=== PATIENT | female | born 1945 | race African-American/Black ===

== ENCOUNTER 2016-08-07 13:54 | Inpatient (IN) | payer MEDICARE ==
[2016-08-07] MEDS ORDERED: NORMAL SALINE 1000 ML 1,000 ML IV ONE (14:34)
--- NOTE | 2016-08-07 14:41 | ER Document Report ---
ED Medical Screen (RME) - General Stated Complaint: ABDOMINAL PAIN Mode of Arrival: Ambulatory Information source: Patient Notes: 71-year-old female presents to the emergency department referred by surgicalist office for lower abdominal pain, weight loss, findings on CT scan on 07/30/15. I have greeted and performed a rapid initial assessment of this patient. A comprehensive ED assessment and evaluation of the patient, analysis of test results and completion of the medical decision making process will be conducted by additional ED providers. TRAVEL OUTSIDE OF THE [place] IN LAST 30 DAYS: No - Related Data Allergies/Adverse Reactions: Penicillins Allergy (Verified 08/07/16 14:32) Past Medical History - Social History Chew tobacco use (# tins/day): No Frequency of alcohol use: None Drug Abuse: None Endocrine Medical History: Reports: Hx Diabetes Mellitus Type 2 Renal/ Medical History: Denies: Hx Peritoneal Dialysis Physical Exam - Vital signs Vitals: Temp Pulse Resp BP 97.4 F 100 22 H 134/86 H 08/07/16 14:15 08/07/16 14:15 08/07/16 14:15 08/07/16 14:15 - General General appearance: Alert In distress: None - Respiratory Respiratory status: No respiratory distress - Cardiovascular Rhythm: Regular Pulses: Normal: Radial Normal capillary refill: Yes Course - Vital Signs Vital signs: Temp Pulse Resp BP Pulse Ox 97.4 F 100 22 H 134/86 H 08/07/16 14:15 08/07/16 14:15 08/07/16 14:15 08/07/16 14:15
[2016-08-07 15:12] LABS: HEMATOCRIT 37.1 % (36.0-47.0); HEMOGLOBIN 11.2 g/dL (12.0-15.5); HGB HCT DIFFERENCE -3.5; MEAN CORPUSCULAR HEMOGLOBIN 22.4 pg (27.0-33.4); MEAN CORPUSCULAR HGB CONC 30.2 g/dL (32.0-36.0); MEAN CORPUSCULAR VOLUME 74 fl (80-97); RED BLOOD COUNT 5.01 10^6/uL (3.72-5.28)
[2016-08-07 15:29] LABS: ALANINE AMINOTRANSFERASE 15 U/L (9-52); ALBUMIN 3.3 g/dL (3.5-5.0); ALKALINE PHOSPHATASE 68 U/L (38-126); ANION GAP 17 (5-19); ASPARTATE AMINO TRANSFERASE 11 U/L (14-36); BILIRUBIN,TOTAL 0.7 mg/dL (0.2-1.3); BLOOD UREA NITROGEN 41 mg/dL (7-20); CALCIUM 9.5 mg/dL (8.4-10.2); CARBON DIOXIDE 34 mmol/L (22-30); CHLORIDE 91 mmol/L (98-107); CREATININE RESULT 1.18 mg/dL (0.52-1.25); GLUCOSE 156 mg/dL (75-110); LIPASE 20.6 U/L (23-300); POTASSIUM 3.2 mmol/L (3.6-5.0); SODIUM 141.9 mmol/L (137-145); TOTAL PROTEIN 7.9 g/dL (6.3-8.2)
[2016-08-07 15:52] LABS: BASOPHILS % (MANUAL) 0 % (0-2); EOSINOPHILS % (MANUAL) 1 % (0-6); LYMPHOCYTES % (MANUAL) 5 % (13-45); TOTAL CELLS COUNTED 100
[2016-08-07 15:55] LABS: ANISOCYTOSIS 2+; HYPOCHROMASIA 1+; MICROCYTOSIS 1+; ROULEAUX 1+; TOXIC GRANULATION SLIGHT
[2016-08-07 16:02] LABS: WHITE BLOOD COUNT 34.9 10^3/uL (4.0-10.5)
--- NOTE | 2016-08-07 16:09 | ER Document Report ---
ED General - General Chief Complaint: Abdominal Pain Stated Complaint: ABDOMINAL PAIN Mode of Arrival: Ambulatory Information source: Patient, Relative, Dr. Office Notes: 71 yr old female who was sent here by Dr Bermudez for evaluation preents with family with concerns of weight loss, decreased appetite. Patient admits to chronic abdominal pain for the past [address] was performed by her primary care physician noted perisigmoid colonic tumor TRAVEL OUTSIDE OF THE [place] IN LAST 30 DAYS: No - HPI Onset: Other Onset/Duration: Persistent Quality of pain: Sharp Severity: Moderate Pain Level: 3 Associated symptoms: Other Exacerbated by: Denies Relieved by: Denies Similar symptoms previously: Yes Recently seen / treated by doctor: Yes - Related Data Allergies/Adverse Reactions: Penicillins Allergy (Verified 08/07/16 14:32) Home Medications: Current Home Medications No Home Medications 08/07/16 [History] Past Medical History - General Information source: Patient - Social History Smoking Status: Never Smoker Cigarette use (# per day): No Chew tobacco use (# tins/day): No Smoking Education Provided: No Frequency of alcohol use: None Drug Abuse: None Family History: Reviewed & Not Pertinent Patient has suicidal ideation: No Patient has homicidal ideation: No Endocrine Medical History: Reports: Hx Diabetes Mellitus Type 2 Renal/ Medical History: Denies: Hx Peritoneal Dialysis Review of Systems - Review of Systems Notes: REVIEW OF SYSTEMS: CONSTITUTIONAL : Weight loss EENT: Denies eye, ear, throat, or mouth pain or symptoms. Denies nasal or sinus congestion or discharge. Denies throat, tongue, or mouth swelling or difficulty swallowing. CARDIOVASCULAR: Denies chest pain. Denies palpitations or racing or irregular heart beat. Denies ankle edema. RESPIRATORY: Denies cough, cold, or chest congestion. Denies shortness of breath, difficulty breathing, or wheezing. GASTROINTESTINAL: Abdominal pain GENITOURINARY: Denies difficulty urinating, painful urination, burning, frequency, blood in urine, or discharge. FEMALE GENITOURINARY: Denies vaginal bleeding, heavy or abnormal periods, irregular periods. Denies vaginal discharge or odor. MUSCULOSKELETAL: Denies back or neck pain or stiffness. Denies joint pain or swelling. SKIN: Denies rash, lesions or sores. HEMATOLOGIC : Denies easy bruising or bleeding. LYMPHATIC: Denies swollen, enlarged glands. NEUROLOGICAL: Denies confusion or altered mental status. Denies passing out or loss of consciousness. Denies dizziness or lightheadedness. Denies headache. Denies weakness or paralysis or loss of use of either side. Denies problems with gait or speech. Denies sensory loss, numbness, or tingling. Denies seizures. PSYCHIATRIC: Denies anxiety or stress. Denies depression, suicidal ideation, or homicidal ideation. ALL OTHER SYSTEMS REVIEWED AND NEGATIVE. Dictation was performed using [employer] voice recognition software PHYSICAL EXAMINATION: GENERAL: Cachectic very ill-appearing female HEAD: Atraumatic, normocephalic. EYES: Pupils equal round and reactive to light, extraocular movements intact, conjunctiva are normal. ENT: Nares patent, oropharynx clear without exudates. Moist mucous membranes. NECK: Normal range of motion, supple without lymphadenopathy LUNGS: Breath sounds clear to auscultation bilaterally and equal. No wheezes rales or rhonchi. HEART: Regular rate and rhythm without murmurs ABDOMEN: Firm abdominal mass tender on palpation unable to leave patient flatly to pain Female : deferred Musculoskeletal: Normal range of motion, no pitting or edema. No cyanosis. NEUROLOGICAL: Cranial nerves grossly intact. Normal speech, normal gait. Normal sensory, motor exams PSYCH: Normal mood, normal affect. SKIN: Warm, Dry, normal turgor, no rashes or lesions noted. Physical Exam - Vital signs Vitals: Temp Pulse Resp BP 97.4 F 100 22 H 134/86 H 08/07/16 14:15 08/07/16 14:15 08/07/16 14:15 08/07/16 14:15 Course - Re-evaluation Re-evalutation: 08/07/16 16:09 pt noted to be ill appearing, cachectic, wbc count 35 UA pending pt started on antibitiocs and fluids 08/07/16 18:51 Urinalysis and chest x-ray results are still pending, patient has been admitted due to her from Lipitor appearance and very low prognosis - Vital Signs Vital signs: Temp Pulse Resp BP Pulse Ox 97.4 F 100 22 H 134/86 H 08/07/16 14:15 08/07/16 14:15 08/07/16 14:15 08/07/16 14:15 - Laboratory Result Diagrams: 08/07/16 14:50 08/07/16 14:50 Laboratory results interpreted by me: 08/07/16 08/07/16 08/07/16 14:50 14:50 14:50 WBC 34.9 H* Hgb 11.2 L MCV 74 L MCH 22.4 L MCHC 30.2 L RDW 18.0 H Seg Neuts % (Manual) 87 H Lymphocytes % (Manual) 5 L Abs Neuts (Manual) 30.4 H Abs Monocytes (Manual) 2.4 H Potassium 3.2 L Chloride 91 L Carbon Dioxide 34 H BUN 41 H Est GFR ( Amer) 54 L Est GFR (Non-Af Amer) 45 L Glucose 156 H AST 11 L Albumin 3.3 L Lipase 20.6 L TSH 9.96 H Free T3 pg/mL 08/07/16 14:50 WBC Hgb MCV MCH MCHC RDW Seg Neuts % (Manual) Lymphocytes % (Manual) Abs Neuts (Manual) Abs Monocytes (Manual) Potassium Chloride Carbon Dioxide BUN Est GFR ( Amer) Est GFR (Non-Af Amer) Glucose AST Albumin Lipase TSH Free T3 pg/mL 1.67 L - Diagnostic Test Radiology reviewed: Image reviewed, Reports reviewed Critical Care Note - Critical Care Note Total time excluding time spent on procedures (mins): 31 Comments: 31 minutes of critical care time spent in direct contact evaluating and reevaluating the patient, treating symptoms, reviewing labs and studies and speaking with family and consultants excluding any procedures Discharge - Discharge Clinical Impression: Abdominal mass, LLQ (left lower quadrant), SIRS (systemic inflammatory response syndrome), Weight loss of more than 10% body weight, Lethargy Condition: Serious Disposition: ADMITTED INPATIENT Admitting Provider: Hospitalist Unit Admitted: Telemetry Referrals: AUGUSTUS QUIÑONES MD [Primary Care Provider] - Follow up as needed
[2016-08-07] MEDS ORDERED: METRONIDAZOLE 500 MG/NS RTU 100 ML IV ONE (16:19)
[2016-08-07] MEDS ORDERED: NORMAL SALINE 1000 ML 2,000 ML IV ONE (16:20)
[2016-08-07] MEDS ORDERED: IPRATROPIUM/ALBUTEROL 0.5-2.5 MG/3 ML AMPUL NEB PRN (16:22)
[2016-08-07] MEDS ORDERED: ONDANSETRON HCL INJ/PF 4 MG/2 ML SDV IV PRN (16:29)
[2016-08-07] MEDS ORDERED: ONDANSETRON 4 MG TAB.RAPDIS PO PRN (16:29)
[2016-08-07] MEDS ORDERED: ACETAMINOPHEN 325 MG TABLET PO PRN (16:29)
[2016-08-07 16:56] LABS: MAGNESIUM 2.3 mg/dL (1.6-2.3); PHOSPHORUS 3.4 mg/dL (2.5-4.5)
[2016-08-07] MEDS ORDERED: DEXTROSE IV SCH (17:00)
[2016-08-07] MEDS ORDERED: LEVOFLOXACIN 500 MG/D5W RTU 100 ML IV SCH (17:00)
[2016-08-07] MEDS ORDERED: LEVOFLOXACIN 750 MG/D5W RTU 750 MG/150 ML RTUPB IV SCH (17:00)
[2016-08-07] MEDS ORDERED: LEVOFLOXACIN IV SCH (17:00)
[2016-08-07] MEDS ORDERED: ACETAMINOPHEN SOLN 325 MG/10.15 ML UDCUP NG PRN (17:42)
[2016-08-07] MEDS ORDERED: PHARMACY COMMUNICATION ORDER MC NR ×2 (17:45)
[2016-08-07] MEDS ORDERED: GLUCAGON,HUMAN RECOMB 1 MG INJ IM PRN (17:53)
[2016-08-07] MEDS ORDERED: DEXTROSE 50%-WATER 25 GM/50 ML DISP.SYRIN IV PRN ×2 (17:53)
[2016-08-07] MEDS ORDERED: DEXTROSE 40% GEL 15 GM TUBE PO PRN ×2 (17:53)
--- NOTE | 2016-08-07 18:06 | PDOC H&P ---
History of Present Illness Admission Date/PCP: 08/07/2016 Enrico Spencer M.D. History of Present Illness: SUMMER LUZ is a 71 year old female with a past medical history significant only for diabetes mellitus who presents to the emergency department from the surgeon's office. Patient has been increasingly lethargic today and worsening over the past 2 weeks. Patient has not been eating or drinking and is noted to have a significant abdominal mass on CT obtained from [facility]. Patient's daughter reports that she's gone from a size 16 to a size 8 or less in under 6 months losing approximately 100 pounds. She reports that her mother as well as cold but denies any fevers or chills. Patient admits to abdominal pain. Patient denies any hematochezia or melena. Patient denies any current nausea or vomiting. History is primarily obtained from patient's daughter as patient is of quite lethargic at bedside. Her daughter does note that she's had some increasing problems with her memory over the last 6 months. Patient is referred to hospital service for SIRS, abdominal pain. Past Medical History Past Medical History: Diabetes mellitus Endocrine Medical History: Reports: Diabetes Mellitus Type 2 Past Surgical History Past Surgical History: Hysterectomy, bilateral salpingo-oophorectomy, appendectomy Past Surgical History: Reports: Appendectomy, Hysterectomy Social History Smoking Status: Never Smoker Frequency of Alcohol Use: None Hx Recreational Drug Use: No Hx Prescription Drug Abuse: No - Advance Directive Resuscitation Status: Full Code Surrogate healthcare decision maker:: Ramonita Alexandre Family History Family History: CAD, Malignancy Parental Family History Reviewed: Yes Children Family History Reviewed: Yes Sibling(s) Family History Reviewed.: Yes Medication/Allergy Home Medications: No Home Medications 08/07/16 Allergies/Adverse Reactions: Penicillins Allergy (Verified 08/07/16 14:32) Review of Systems ROS unobtainable: Due to mental status Physical Exam Vital Signs: Temp Pulse Resp BP Pulse Ox 97.4 F 100 22 H 134/86 H 08/07/16 14:15 08/07/16 14:15 08/07/16 14:15 08/07/16 14:15 Intake & Output 08/06/16 08/07/16 08/08/16 06:59 06:59 06:59 Weight 55.7 kg General appearance: PRESENT: thin, other - Cachectic, lethargic Head exam: PRESENT: atraumatic, normocephalic, other - wig Eye exam: PRESENT: conjunctiva pale, EOMI, PERRLA, scleral icterus - Slight scleral. ABSENT: conjunctival injection Ear exam: PRESENT: normal external ear exam Mouth exam: PRESENT: dry mucosa, tongue midline Neck exam: PRESENT: lymphadenopathy - Shotty anterior cervical. ABSENT: carotid bruit, JVD, meningismus, tenderness, thyromegaly, tracheal deviation Respiratory exam: PRESENT: clear to auscultation mitesh, tachypnea, unlabored. ABSENT: rales, rhonchi, wheezes Cardiovascular exam: PRESENT: RRR, +S1, +S2. ABSENT: clicks, diastolic murmur, gallop, rubs, systolic murmur Pulses: PRESENT: normal dorsalis pedis pul Vascular exam: PRESENT: normal capillary refill GI/Abdominal exam: PRESENT: guarding, mass - Palpable left lower quadrant, soft , tenderness - Right and left lower quadrant, other - Unable to fully appreciate mass in abdomen secondary to pain. ABSENT: distended, firm, normal bowel sounds - Absent, organolmegaly, rebound Rectal exam: PRESENT: deferred Extremities exam: PRESENT: full ROM, pedal edema - Trace to midshin. ABSENT: calf tenderness, clubbing Neurological exam: PRESENT: CN II-XII grossly intact, other - Lethargic. ABSENT : motor sensory deficit Psychiatric exam: PRESENT: depressed, flat affect. ABSENT: homicidal ideation, suicidal ideation Skin exam: PRESENT: dry, intact, pallor. ABSENT: cyanosis, rash, warm - Cool bilateral lower extremities Results Laboratory Results: 08/07/16 14:50 08/07/16 14:50 08/07/16 08/07/16 08/07/16 14:50 14:50 14:50 WBC 34.9 H* RBC 5.01 Hgb 11.2 L Hct 37.1 MCV 74 L MCH 22.4 L MCHC 30.2 L RDW 18.0 H Plt Count 384 Seg Neutrophils % Not Reportable Lymphocytes % Not Reportable Monocytes % Not Reportable Eosinophils % Not Reportable Basophils % Not Reportable Absolute Neutrophils Not Reportable Absolute Lymphocytes Not Reportable Absolute Monocytes Not Reportable Absolute Eosinophils Not Reportable Absolute Basophils Not Reportable Sodium 141.9 Potassium 3.2 L Chloride 91 L Carbon Dioxide 34 H Anion Gap 17 BUN 41 H Creatinine 1.18 Est GFR ( Amer) 54 L Est GFR (Non-Af Amer) 45 L Glucose 156 H Calcium 9.5 Phosphorus 3.4 Magnesium 2.3 Total Bilirubin 0.7 AST 11 L ALT 15 Alkaline Phosphatase 68 Total Protein 7.9 Albumin 3.3 L Lipase 20.6 L TSH 08/07/16 14:50 WBC RBC Hgb Hct MCV MCH MCHC RDW Plt Count Seg Neutrophils % Lymphocytes % Monocytes % Eosinophils % Basophils % Absolute Neutrophils Absolute Lymphocytes Absolute Monocytes Absolute Eosinophils Absolute Basophils Sodium Potassium Chloride Carbon Dioxide Anion Gap BUN Creatinine Est GFR ( Amer) Est GFR (Non-Af Amer) Glucose Calcium Phosphorus Magnesium Total Bilirubin AST ALT Alkaline Phosphatase Total Protein Albumin Lipase TSH 9.96 H Assessment & Plan - Diagnosis (1) Abdominal mass, LLQ (left lower quadrant) Is this a current diagnosis for this admission?: YesPlan: At this time, patient has no bowel sounds. Will place NG and obtain CT of the abdomen and pelvis with IV and by mouth contrast. Concern for possible perforated mass. Initiate patient on Levaquin and Flagyl for coverage of intra- abdominal pathogens. Will consult surgicalist for any acute process. (2) SIRS (systemic inflammatory response syndrome) Is this a current diagnosis for this admission?: YesPlan: Obtain blood cultures, UA, urine culture and will begin patient on Levaquin and Flagyl for intra-abdominal etiology. Suspect the patient likely also have a urinary tract infection of the urine is still pending. (3) Weight loss of more than 10% body weight Is this a current diagnosis for this admission?: YesPlan: Will obtain TSH, and consult dietary. Suspect that this is likely related to patient's underlying previously undiagnosed malignancy. Patient currently appears cachectic and is quite weak. Will begin patient on ensure and Magic cup as well as Megace. (4) Diabetes mellitus Qualifiers: Diabetes mellitus type: type 2 Diabetes mellitus complication status: with unspecified complications Diabetes mellitus lobsterman insulin use: without senior living use Qualified Code(s): E11.8 - Type 2 diabetes mellitus with unspecified complications Is this a current diagnosis for this admission?: YesPlan: Will obtain hemoglobin A1c. Accu-Cheks every 6 and sliding scale insulin if needed. (5) Anemia Qualifiers: Anemia type: unspecified type Qualified Code(s): D64.9 - Anemia, unspecified Is this a current diagnosis for this admission?: YesPlan: Will obtain iron studies. (6) Lethargy Is this a current diagnosis for this admission?: YesPlan: Will obtain CT of the head for patient's lethargy and memory issues, suspect underlying metastatic malignancy. - Time Time Spent: 50 to 70 Minutes Medications reviewed and adjusted accordingly: Yes - Inpatient Certification Based on my medical assessment, after consideration of the patient's comorbidities, presenting symptoms, or acuity I expect that the services needed warrant INPATIENT care.: Yes I certify that my determination is in accordance with my understanding of Medicare's requirements for reasonable and necessary INPATIENT services [42 CFR 412.3e].: Yes Medical Necessity: Failure to Improve With Outpatient Therapy, Significant Comorbidiites Make Outpatient Treatment Too Risky, Need For IV Fluids, Need For Continuous Telemetry Monitoring, Need for Pain Control, Need for Surgery, Risk of Complication if Not Cared For in Hospital, Risk of Diagnosis Which Will Require Inpatient Eval/Care/Monitoring Post Hospital Care: D/C Cloud Software Engineer Documentation
[2016-08-07 18:14] LABS: PARTIAL THROMBOPLASTIN TIME 24.7 SEC (23.5-35.8); PROTHROMBIN TIME 13.8 SEC (11.4-15.4)
[2016-08-07 18:18] LABS: FREE T3 1.67 pg/mL (2.77-5.27)
[2016-08-07] MEDS ORDERED: ONDANSETRON 4 MG TAB.RAPDIS NG PRN (19:53)
[2016-08-07] MEDS ORDERED: DEXTROSE 40% GEL 15 GM TUBE NG PRN (19:53)
[2016-08-07 20:30] LABS: VENOUS BLOOD BASE EXCESS 5.5 mmol/L; VENOUS BLOOD HCO3 30.1 mmol/L (20-32); VENOUS BLOOD PCO2 45.2 mmHg (35-63); VENOUS BLOOD PH 7.44 (7.30-7.42)
[2016-08-07] MEDS: NORMAL SALINE 1000 ML 1,000 ML IV PRN (21:00)
[2016-08-07] MEDS: DOCUSATE SODIUM 100 MG CAPSULE PO SCH (21:00)
[2016-08-07] MEDS: HEPARIN SOD (PORCINE) 5,000 UNIT/ML 1 ML SYRINGE SUBCUT SCH (22:00)
[2016-08-07] MEDS ORDERED: FAMOTIDINE 20 MG TABLET PO SCH (22:00)
[2016-08-07] MEDS ORDERED: FAMOTIDINE 20 MG TABLET NG SCH (22:00)
[2016-08-08] MEDS ORDERED: MINERAL OIL 30 ML UDCUP PO ONE (00:03)
[2016-08-08] MEDS: METRONIDAZOLE 500 MG/NS RTU 100 ML IV SCH ×3 (03:11→11:12)
[2016-08-08] MEDS ORDERED: MINERAL OIL 30 ML UDCUP ONE (04:02)
[2016-08-08] MEDS ORDERED: ACETAMINOPHEN SOLN 325 MG/10.15 ML UDCUP PO PRN (04:47)
[2016-08-08] MEDS ORDERED: ONDANSETRON 4 MG TAB.RAPDIS NG PRN (04:48)
[2016-08-08] MEDS ORDERED: DEXTROSE 40% GEL 15 GM TUBE NG PRN (04:49)
[2016-08-08] MEDS ORDERED: ONDANSETRON 4 MG TAB.RAPDIS PO PRN (04:50)
[2016-08-08] MEDS ORDERED: DEXTROSE 40% GEL 15 GM TUBE PO PRN (04:52)
[2016-08-08] MEDS: MORPHINE SULFATE 10 MG/ML INJ IV PRN (04:53)
[2016-08-08 04:56] LABS: APPEARANCE,URINE CLEAR; BILIRUBIN,URINE NEGATIVE (NEGATIVE); GLUCOSE, URINE NEGATIVE (NEGATIVE); KETONES,URINE TRACE mg/dL (NEGATIVE); LEUKOCYTE ESTERASE,URINE TRACE (NEGATIVE); NITRITE,URINE NEGATIVE (NEGATIVE); PROTEIN,URINE NEGATIVE (NEGATIVE); URINE SPECIFIC GRAVITY 1.042; UROBILINOGEN,URINE NEGATIVE mg/dL (<2.0)
[2016-08-08] MEDS ORDERED: LEVOTHYROXINE SODIUM 0.025 MG TABLET NG SCH (06:00)
[2016-08-08] MEDS ORDERED: LEVOTHYROXINE SODIUM 0.025 MG TABLET PO SCH (06:00)
[2016-08-08] MEDS: HEPARIN SOD (PORCINE) 5,000 UNIT/ML 1 ML SYRINGE SUBCUT SCH ×3 (06:24→21:44)
[2016-08-08] MEDS ORDERED: POTASSIUM CHLORIDE 10 MEQ TABLET.SA PO ONE ×2 (08:30→12:00)
[2016-08-08 09:59] LABS: HEMATOCRIT 33.4 % (36.0-47.0); HEMOGLOBIN 10.4 g/dL (12.0-15.5); HGB HCT DIFFERENCE -2.2; MEAN CORPUSCULAR HGB CONC 31.3 g/dL (32.0-36.0); MEAN CORPUSCULAR VOLUME 74 fl (80-97); RED BLOOD COUNT 4.55 10^6/uL (3.72-5.28); RED CELL DISTRIBUTION WIDTH 18.1 % (11.5-14.0)
[2016-08-08] MEDS ORDERED: MEGESTROL ACETATE SUSP 400 MG/10 ML UDCUP NG SCH (10:00)
[2016-08-08 10:09] LABS: ANION GAP 18 (5-19); BLOOD UREA NITROGEN 29 mg/dL (7-20); CALCIUM 8.6 mg/dL (8.4-10.2); CARBON DIOXIDE 25 mmol/L (22-30); CHLORIDE 102 mmol/L (98-107); CREATININE RESULT 0.99 mg/dL (0.52-1.25); GLUCOSE 125 mg/dL (75-110); SODIUM 144.8 mmol/L (137-145)
[2016-08-08 10:39] LABS: POTASSIUM 2.6 mmol/L (3.6-5.0)
[2016-08-08 10:42] LABS: BAND NEUTROPHILS % (MANUAL) 2 % (3-5); BASOPHILS % (MANUAL) 0 % (0-2); EOSINOPHILS % (MANUAL) 1 % (0-6); LYMPHOCYTES % (MANUAL) 3 % (13-45); TOTAL CELLS COUNTED 100
[2016-08-08 10:44] LABS: ANISOCYTOSIS 1+; HYPOCHROMASIA 1+; TOXIC GRANULATION 1+
[2016-08-08 10:45] LABS: WHITE BLOOD COUNT 34.3 10^3/uL (4.0-10.5)
[2016-08-08] MEDS ORDERED: MAGNESIUM CITRATE 296 ML BOTTLE PO ONE (11:00)
[2016-08-08 11:12] LABS: FOLATE 2.49 ng/mL (>2.76); MICROCYTOSIS 1+
[2016-08-08] MEDS: NORMAL SALINE 1000 ML 1,000 ML IV PRN ×2 (11:14→20:06)
[2016-08-08] MEDS: FAMOTIDINE 20 MG TABLET PO SCH ×2 (11:16→21:44)
[2016-08-08] MEDS: MEGESTROL ACETATE SUSP 400 MG/10 ML UDCUP PO SCH (11:16)
[2016-08-08] MEDS ORDERED: FOLIC ACID INJ 5 MG/1 ML 10 ML VIAL IV SCH (12:15)
[2016-08-08] MEDS: POTASSI CL 20 MEQ/50 ML RIDER 50 ML IV SCH ×3 (13:01→17:19)
[2016-08-08] MEDS ORDERED: DIPHENHYDRAMINE HCL 50 MG/ML VIAL IV PRN (14:00)
[2016-08-08] MEDS ORDERED: PEG 3350/NA SULF,BICARB,CL/KCL 4000 ML PO ONE (14:00)
[2016-08-08] MEDS ORDERED: ACETAMINOPHEN 325 MG TABLET PO PRN (14:00)
--- NOTE | 2016-08-08 14:26 | PDOC PROGRESS REPORT ---
Subjective Progress Note for:: 08/08/16 Subjective:: Patient is having some confusion. Primarily she would like to sit up. Patient' s abdominal pain appears to be improved with morphine. Unable to obtain review of systems secondary to altered mental status. Physical Exam Vital Signs: Temp Pulse Resp BP Pulse Ox 97.5 F 108 H 18 119/81 100 08/08/16 03:07 08/08/16 07:00 08/08/16 03:07 08/08/16 03:07 08/08/16 03:07 Intake & Output 08/07/16 08/08/16 08/09/16 06:59 06:59 06:59 Intake Total 1089 Balance 1089 Weight 47.8 kg Exam: General: Cachectic, chronically ill-appearing, Awake alert and oriented x1, no acute respiratory distress HEENT: AT/NC, PERRL, EOMI, oropharynx is moist, pink, no scleral icterus, no conjunctival injection Neck: No JVD, trachea midline Chest: Clear to auscultation bilaterally, no wheezes rhonchi or rales CV: Regular rate and rhythm, normal S1 and S2, no rub, or gallop Abdomen:tender to palpation llq, mildly distended, active bowel sounds; no rebound, rigidity, or guarding Extremities: No cyanosis, clubbing or edema Neuro: Cranial nerves II through XII are grossly intact without focal deficits; awake alert and oriented x1 Psych: Flat affect Skin: No rashes or lesions visible Results Laboratory Results: 08/07/16 08/07/16 08/07/16 20:12 20:12 20:12 VBG pH 7.44 H VBG pCO2 45.2 VBG HCO3 30.1 VBG Base Excess 5.5 Lactic Acid 2.1 Urine Color Urine Appearance Urine pH Ur Specific [place] Urine Protein Urine Glucose (UA) Urine Ketones Urine Blood Urine Nitrite Ur Leukocyte Esterase Urine WBC (Auto) Urine RBC (Auto) Blood Type O POSITIVE Antibody Screen NEGATIVE 08/08/16 08/08/16 00:54 03:39 VBG pH VBG pCO2 VBG HCO3 VBG Base Excess Lactic Acid 4.2 H Urine Color YELLOW Urine Appearance CLEAR Urine pH 6.0 Ur Specific [place] 1.042 Urine Protein NEGATIVE Urine Glucose (UA) NEGATIVE Urine Ketones TRACE H Urine Blood NEGATIVE Urine Nitrite NEGATIVE Ur Leukocyte Esterase TRACE H Urine WBC (Auto) 1 Urine RBC (Auto) 0 Blood Type Antibody Screen Impressions: Abdomen/Pelvis CT 08/07/16 00:00 IMPRESSION: There is thickening of the hoyt of the sigmoid colon as noted above with an apparent focal area of narrowing suspicious for colonic neoplasm or stricture. There is a moderate amount of gas and fecal material in the colon just proximal to this level. Clinical correlation is recommended. Colonoscopy may be of value for further evaluation. Other findings as noted above Head CT 08/07/16 00:00 IMPRESSION: CHRONIC CHANGES OF ATROPHY AND MICROVASCULAR ISCHEMIA. NO ACUTE PROCESS. Chest X-Ray 08/07/16 16:28 IMPRESSION: No acute cardiopulmonary process. No significant change from prior study. Assessment & Plan - Diagnosis (1) Abdominal mass, LLQ (left lower quadrant) Is this a current diagnosis for this admission?: YesPlan: Appears on CT the patient has a sigmoid mass and subsequent fecal impaction proximal to the mass. Appreciate surgery input on this case. Attempt cathartics both oral and per rectum. Hopefully plan for a sigmoidoscopy within the next several days. Have sent a CEA and CA-[id number] and consulted oncology. (2) SIRS (systemic inflammatory response syndrome) Is this a current diagnosis for this admission?: YesPlan: Pending blood cultures, urine culture. Patient on Levaquin and Flagyl for intra- abdominal etiology; given that patient has had very minimal change in her white count from this, will change to ertapenem as there is some concern for possible ongoing leakage of gastric contents into her abdomen. CT was done without oral contrast despite my orders for NG and oral contrast. (3) Weight loss of more than 10% body weight Is this a current diagnosis for this admission?: YesPlan: Consult dietary. Suspect that this is likely related to patient's underlying previously undiagnosed malignancy. Patient currently appears cachectic and is quite weak. Patient on ensure and Magic cup as well as Megace. Will monitor patient for refeeding syndrome. Will place NG and tube feeds if needed. (4) Diabetes mellitus Qualifiers: Diabetes mellitus type: type 2 Diabetes mellitus complication status: with unspecified complications Diabetes mellitus residential insulin use: without residential use Qualified Code(s): E11.8 - Type 2 diabetes mellitus with unspecified complications; Z79.4 - shelter (current) use of insulin Is this a current diagnosis for this admission?: YesPlan: Patient's hemoglobin A1c is 5.8. Accu-Cheks every 6. 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 Begin patient on IV folic acid and patient has received IV iron from hematology. Appreciate their input into this patient's case. (6) Hypothyroidism Qualifiers: Hypothyroidism type: unspecified Qualified Code(s): E03.9 - Hypothyroidism, unspecified Is this a current diagnosis for this admission?: YesPlan: Patient currently hypothyroid and will initiate on 50 g of Synthroid daily. (7) Fecal impaction Is this a current diagnosis for this admission?: YesPlan: Patient will have cathartics from both upper and lower. Secondary to mass. Appreciate surgery's input. (8) Altered mental status Qualifiers: Altered mental status type: disorientation Qualified Code(s): R41.0 - Disorientation, unspecified Is this a current diagnosis for this admission?: YesPlan: Feel that patient's current altered mental status is secondary to underlying sepsis, malignancy. - Time Time Spent with patient: 35 or more minutes Medications reviewed and adjusted accordingly: Yes
[2016-08-08] MEDS ORDERED: FERRIC CARBOXYMALTOSE 750 MG in NORMAL SALINE 250 ML IV PRN (14:30)
[2016-08-08] MEDS: FOLIC ACID 1 MG in NORMAL SALINE 50 ML IV SCH (16:35)
--- NOTE | 2016-08-08 17:07 | PDOC CONSULTATION ---
History of Present Illness Admission Date/PCP: 08/07/16 16:22 AUGUSTUS QUIÑONES History of Present Illness: SUMMER LUZ is a 71 year old -[place] female with a past medical history significant only for diabetes mellitus. She was sent from the surgeon' s office to the emergency department based on clinical assessment and worrisome CT findings. History is obtained from the patient's 3 daughters, since the patient is unable, due to mental status changes. Summer has experienced a gradual weight loss over the last 2 years and in extreme weight loss over the last 2 months. Her total weight loss is estimated to be greater than 100 pounds , approximate 40 of which was in the last month and a half. She is gone from a size 18 down to a size 6. She has not been eating and has been taking in very little fluids. She reports feeling full. Her daughters have been encouraging her to seek medical care for quite some time, but she has been resistant. She did not have diarrhea but did have one episode of diarrhea during this last 2 months. During the last 2 months she's been reporting lower abdominal pain, poor sleep, memory issues, depression and questionable dementia. She's also been cold all the time and had white fingertips. She was seen 3 weeks ago for dark urine and was diagnosed with UTI. She was described Bactrim, but only took 1 dose since it gave her abdominal discomfort. Social history: She is a former smoker, but quit over 35 years ago. She lives alone in [place] but has 3 daughters present in the surrounding area. Family history: The daughters deny any family history of colon cancer, ulcerative colitis or Crohn's disease. Past surgical history: Previous abdominal surgery includes total abdominal hysterectomy with concurrent appendectomy. No previous colonoscopy. Review of systems: From the daughters, is negative for nausea, vomiting, fever, chills, seizures, tremors, lightheadedness, dizziness, chest pain, shortness of breath, constipation, blood in her stools. Past Medical History Endocrine Medical History: Reports: Diabetes Mellitus Type 2 Past Surgical History Past Surgical History: Reports: Appendectomy, Hysterectomy Social History Information Source: Relative Lives with: Alone Smoking Status: Former Smoker Cigarettes Packs Per Day: 0.5 Last Time Smoked: 35 years ago Frequency of Alcohol Use: None Hx Recreational Drug Use: No Drugs: None Hx Prescription Drug Abuse: No - Advance Directive Resuscitation Status: Full Code Family History Family History: DM, Hypertension, Malignancy - Breast cancer and her sister's. No family history of colon cancer. Parental Family History Reviewed: Yes Children Family History Reviewed: Yes Sibling(s) Family History Reviewed.: Yes Medication/Allergy Home Medications: No Home Medications 08/07/16 Allergies/Adverse Reactions: Penicillins Allergy (Verified 08/07/16 14:32) Review of Systems ROS unobtainable: Due to mental status Physical Exam Vital Signs: Temp Pulse Resp BP Pulse Ox 97.2 F 90 16 106/71 97 08/08/16 11:36 08/08/16 14:15 08/08/16 14:15 08/08/16 11:36 08/08/16 14:15 Intake & Output 08/07/16 08/08/16 08/09/16 06:59 06:59 06:59 Intake Total 1089 Balance 1089 Weight 47.8 kg General appearance: PRESENT: no acute distress - But lethargic, thin Head exam: PRESENT: normocephalic Eye exam: PRESENT: EOMI Mouth exam: PRESENT: tongue midline Teeth exam: PRESENT: edentulous Neck exam: ABSENT: JVD, lymphadenopathy, tenderness, thyromegaly Respiratory exam: PRESENT: clear to auscultation mitesh - Poor effort, but clear Cardiovascular exam: PRESENT: RRR GI/Abdominal exam: PRESENT: soft, tenderness - Mild to moderate tenderness to palpation in left lower quadrant. No rebound or guarding.. ABSENT: guarding, rebound Rectal exam: PRESENT: other - Patient was not cooperative with exam, so upper portion of the rectal vault was not palpated, but no masses felt in the lower portion of the rectal vault. No bloody stool. No melanotic stool. Soft brown formed stool in the vault.. ABSENT: black stool, bloody stool, mass Musculoskeletal exam: PRESENT: other - Muscle wasting. ABSENT: deformity Neurological exam: ABSENT: alert, oriented to person, oriented to place, oriented to time, oriented to situation Focused psych exam: PRESENT: other - Lethargic Results Laboratory Results: 08/08/16 09:15 08/08/16 09:15 08/07/16 08/07/16 08/07/16 20:12 20:12 20:12 WBC RBC Hgb Hct MCV MCH MCHC RDW Plt Count Seg Neutrophils % Lymphocytes % Monocytes % Eosinophils % Basophils % Absolute Neutrophils Absolute Lymphocytes Absolute Monocytes Absolute Eosinophils Absolute Basophils Retic Count (auto) Absolute Retic VBG pH 7.44 H VBG pCO2 45.2 VBG HCO3 30.1 VBG Base Excess 5.5 Sodium Potassium Chloride Carbon Dioxide Anion Gap BUN Creatinine Est GFR ( Amer) Est GFR (Non-Af Amer) Glucose Lactic Acid 2.1 Calcium Phosphorus Magnesium Iron TIBC % Saturation Ferritin Vitamin B12 Folate Urine Color Urine Appearance Urine pH Ur Specific [place] Urine Protein Urine Glucose (UA) Urine Ketones Urine Blood Urine Nitrite Ur Leukocyte Esterase Urine WBC (Auto) Urine RBC (Auto) Blood Type O POSITIVE Antibody Screen NEGATIVE 08/08/16 08/08/16 08/08/16 00:54 03:39 09:15 WBC 34.3 H* RBC 4.55 Hgb 10.4 L Hct 33.4 L MCV 74 L MCH 23.0 L MCHC 31.3 L RDW 18.1 H Plt Count 344 Seg Neutrophils % Not Reportable Lymphocytes % Not Reportable Monocytes % Not Reportable Eosinophils % Not Reportable Basophils % Not Reportable Absolute Neutrophils Not Reportable Absolute Lymphocytes Not Reportable Absolute Monocytes Not Reportable Absolute Eosinophils Not Reportable Absolute Basophils Not Reportable Retic Count (auto) Absolute Retic VBG pH VBG pCO2 VBG HCO3 VBG Base Excess Sodium Potassium Chloride Carbon Dioxide Anion Gap BUN Creatinine Est GFR ( Amer) Est GFR (Non-Af Amer) Glucose Lactic Acid 4.2 H Calcium Phosphorus Magnesium Iron TIBC % Saturation Ferritin Vitamin B12 Folate Urine Color YELLOW Urine Appearance CLEAR Urine pH 6.0 Ur Specific [place] 1.042 Urine Protein NEGATIVE Urine Glucose (UA) NEGATIVE Urine Ketones TRACE H Urine Blood NEGATIVE Urine Nitrite NEGATIVE Ur Leukocyte Esterase TRACE H Urine WBC (Auto) 1 Urine RBC (Auto) 0 Blood Type Antibody Screen 08/08/16 08/08/16 08/08/16 09:15 09:15 09:15 WBC RBC Hgb Hct MCV MCH MCHC RDW Plt Count Seg Neutrophils % Lymphocytes % Monocytes % Eosinophils % Basophils % Absolute Neutrophils Absolute Lymphocytes Absolute Monocytes Absolute Eosinophils Absolute Basophils Retic Count (auto) 1.50 Absolute Retic 0.068 VBG pH VBG pCO2 VBG HCO3 VBG Base Excess Sodium 144.8 Potassium 2.6 L* Chloride 102 Carbon Dioxide 25 Anion Gap 18 BUN 29 H Creatinine 0.99 Est GFR ( Amer) > 60 Est GFR (Non-Af Amer) 55 L Glucose 125 H Lactic Acid Calcium 8.6 Phosphorus 3.0 Magnesium 2.0 Iron 22 L TIBC 229 L % Saturation 10 Ferritin 308.00 H Vitamin B12 635.0 Folate 2.49 L Urine Color Urine Appearance Urine pH Ur Specific [place] Urine Protein Urine Glucose (UA) Urine Ketones Urine Blood Urine Nitrite Ur Leukocyte Esterase Urine WBC (Auto) Urine RBC (Auto) Blood Type Antibody Screen 08/08/16 09:15 WBC RBC Hgb Hct MCV MCH MCHC RDW Plt Count Seg Neutrophils % Lymphocytes % Monocytes % Eosinophils % Basophils % Absolute Neutrophils Absolute Lymphocytes Absolute Monocytes Absolute Eosinophils Absolute Basophils Retic Count (auto) Absolute Retic VBG pH VBG pCO2 VBG HCO3 VBG Base Excess Sodium Potassium Chloride Carbon Dioxide Anion Gap BUN Creatinine Est GFR ( Amer) Est GFR (Non-Af Amer) Glucose Lactic Acid Calcium Phosphorus Magnesium 1.9 Iron TIBC % Saturation Ferritin Vitamin B12 Folate Urine Color Urine Appearance Urine pH Ur Specific [place] Urine Protein Urine Glucose (UA) Urine Ketones Urine Blood Urine Nitrite Ur Leukocyte Esterase Urine WBC (Auto) Urine RBC (Auto) Blood Type Antibody Screen Impressions: Abdomen/Pelvis CT 08/07/16 00:00 IMPRESSION: There is thickening of the hoyt of the sigmoid colon as noted above with an apparent focal area of narrowing suspicious for colonic neoplasm or stricture. There is a moderate amount of gas and fecal material in the colon just proximal to this level. Clinical correlation is recommended. Colonoscopy may be of value for further evaluation. Other findings as noted above Head CT 08/07/16 00:00 IMPRESSION: CHRONIC CHANGES OF ATROPHY AND MICROVASCULAR ISCHEMIA. NO ACUTE PROCESS. Chest X-Ray 08/07/16 16:28 IMPRESSION: No acute cardiopulmonary process. No significant change from prior study. Chest CT 08/08/16 00:00 IMPRESSION: No CT evidence of metastatic disease to the chest. There is a persistent left dense nephrogram with moderate left hydronephrosis and upper hydroureter. Suspect left-sided ureteral impingement by the midline malignant appearing pelvic mass seen on yesterday's CT abdomen and pelvis Status: Image reviewed by me Assessment & Plan - Diagnosis (1) Abdominal mass, LLQ (left lower quadrant) Is this a current diagnosis for this admission?: YesPlan: Indistinct lower abdominal mass which looks to invade the retroperitoneum. Left hydronephrosis. Spoke about obtaining urology consult. No urologist is available at this institution until at least this weekend. Also spoke about obtaining at least a limited colonoscopy to try to assess what appears to be a sigmoid colon mass and possibly obtain a biopsy. CEA is extremely elevated. Surprisingly, there is no evidence of metastatic disease in the liver or the lungs. Spoke with hospitalist as well as another general surgeon. Recommend transfer to tertiary institution with colorectal as well as urological support. Patient has been accepted at [facility] via the medicine service, but bed availability is an issue. I paged the general surgeon at [facility] to discuss specifics of the case. (2) Altered mental status Qualifiers: Altered mental status type: disorientation Qualified Code(s): R41.0 - Disorientation, unspecified Is this a current diagnosis for this admission?: Yes (3) Diabetes mellitus Qualifiers: Diabetes mellitus type: type 2 Diabetes mellitus complication status: with unspecified complications Diabetes mellitus hrbp insulin use: without penitentiary use Qualified Code(s): E11.8 - Type 2 diabetes mellitus with unspecified complications; Z79.4 - [facility] (current) use of insulin Is this a current diagnosis for this admission?: Yes (4) Hypothyroidism Qualifiers: Hypothyroidism type: unspecified Qualified Code(s): E03.9 - Hypothyroidism, unspecified Is this a current diagnosis for this admission?: Yes (5) Lethargy Is this a current diagnosis for this admission?: Yes (6) SIRS (systemic inflammatory response syndrome) Is this a current diagnosis for this admission?: Yes (7) Weight loss of more than 10% body weight Is this a current diagnosis for this admission?: Yes
[2016-08-08] MEDS: ERTAPENEM SODIUM 1 GM in NORMAL SALINE 50 ML IV SCH (17:18)
--- NOTE | 2016-08-08 17:46 | PDOC CONSULTATION ---
Consultation Consult Date: 08/08/16 Consult reason:: iron deficiency and colonic mass History of Present Illness Admission Date/PCP: 08/07/16 16:22 AUGUSTUS QUIÑONES History of Present Illness: SUMMER LUZ is a 71 year old -Filipino female with a past medical history significant only for diabetes mellitus. She was sent from the surgeon' s office to the emergency department based on clinical assessment and worrisome CT findings with a large sigmoid colon mass and possible stricture. History was obtained from the patient's 3 daughters from other team members, since the patient is unable, due to mental status changes of unclear etiology with a Head CT showing chronic changes. Ms. Luz has experienced a gradual weight loss over the last 2 years and in extreme weight loss over the last 2 months. Her total weight loss is estimated to be greater than 100 pounds, approximate 40 of which was in the last month and a half. She has gone from a size 18 down to a size 6. She has not been eating and has been taking in very little fluids especially over the past few days. She reports feeling full. Her daughters have been encouraging her to seek medical care for quite some time , but she has been resistant. She did not have diarrhea but did have one episode of diarrhea during this last 2 months. During the last 2 months she's been reporting lower abdominal pain, poor sleep, memory issues, depression and questionable dementia. She's also been "cold"all the time and had white fingertips and noted to be anemic with iron deficiency on presentation. She was seen 3 weeks ago for dark urine and was diagnosed with UTI. She was described Bactrim, but only took 1 dose since it gave her abdominal discomfort. Her CT is as noted with a mass in the sigmoid colon and left hydronephrosis. Social history: She is a former smoker, but quit over 35 years ago. She lives alone in [place] but has 3 daughters present in the surrounding area. Family history: The daughters deny any family history of colon cancer, ulcerative colitis or Crohn's disease. However, a family history is significant for breast cancer. Past surgical history: Previous abdominal surgery includes total abdominal hysterectomy with concurrent appendectomy. No previous colonoscopy. Review of systems: From the daughters, is negative for nausea, vomiting, fever, chills, seizures, tremors, lightheadedness, dizziness, chest pain, shortness of breath, constipation, blood in her stools. Past Medical History Endocrine Medical History: Reports: Diabetes Mellitus Type 2 Past Surgical History Past Surgical History: Reports: Appendectomy, Hysterectomy Social History Lives with: Alone Smoking Status: Former Smoker Cigarettes Packs Per Day: 0.5 Last Time Smoked: 35 years ago Frequency of Alcohol Use: None Hx Recreational Drug Use: No Drugs: None Hx Prescription Drug Abuse: No - Advance Directive Resuscitation Status: Full Code Family History Family History: DM, Hypertension, Malignancy - Breast cancer and her sister's. No family history of colon cancer. Parental Family History Reviewed: Yes Children Family History Reviewed: Yes Sibling(s) Family History Reviewed.: Yes Medication/Allergy Home Medications: No Home Medications 08/07/16 Allergies/Adverse Reactions: Penicillins Allergy (Verified 08/07/16 14:32) Review of Systems Constitutional: PRESENT: as per HPI, weakness, weight loss Cardiovascular: PRESENT: as per HPI Respiratory: PRESENT: as per HPI Gastrointestinal: PRESENT: abdominal pain Neurological: PRESENT: as per HPI Endocrine: PRESENT: cold intolerance Physical Exam Vital Signs: Temp Pulse Resp BP Pulse Ox 97.3 F 95 16 118/72 100 08/08/16 15:45 08/08/16 15:45 08/08/16 15:45 08/08/16 15:45 08/08/16 15:45 Intake & Output 08/07/16 08/08/16 08/09/16 06:59 06:59 06:59 Intake Total 1089 Balance 1089 Weight 47.8 kg General appearance: PRESENT: other - Doesn't respond to all of the questions, arouses Head exam: PRESENT: normocephalic Eye exam: PRESENT: conjunctiva pale Ear exam: PRESENT: normal external ear exam Mouth exam: PRESENT: dry mucosa Neck exam: PRESENT: other - supple Respiratory exam: PRESENT: clear to auscultation mitesh Cardiovascular exam: PRESENT: RRR GI/Abdominal exam: PRESENT: guarding, tenderness, other - fullness in the LLQ Rectal exam: PRESENT: deferred Focused psych exam: PRESENT: restlessness Results Laboratory Results: 08/08/16 09:15 08/08/16 09:15 08/07/16 08/07/16 08/07/16 20:12 20:12 20:12 WBC RBC Hgb Hct MCV MCH MCHC RDW Plt Count Seg Neutrophils % Lymphocytes % Monocytes % Eosinophils % Basophils % Absolute Neutrophils Absolute Lymphocytes Absolute Monocytes Absolute Eosinophils Absolute Basophils Retic Count (auto) Absolute Retic VBG pH 7.44 H VBG pCO2 45.2 VBG HCO3 30.1 VBG Base Excess 5.5 Sodium Potassium Chloride Carbon Dioxide Anion Gap BUN Creatinine Est GFR ( Amer) Est GFR (Non-Af Amer) Glucose Lactic Acid 2.1 Calcium Phosphorus Magnesium Iron TIBC % Saturation Ferritin Vitamin B12 Folate Urine Color Urine Appearance Urine pH Ur Specific [place] Urine Protein Urine Glucose (UA) Urine Ketones Urine Blood Urine Nitrite Ur Leukocyte Esterase Urine WBC (Auto) Urine RBC (Auto) Blood Type O POSITIVE Antibody Screen NEGATIVE 08/08/16 08/08/16 08/08/16 00:54 03:39 09:15 WBC 34.3 H* RBC 4.55 Hgb 10.4 L Hct 33.4 L MCV 74 L MCH 23.0 L MCHC 31.3 L RDW 18.1 H Plt Count 344 Seg Neutrophils % Not Reportable Lymphocytes % Not Reportable Monocytes % Not Reportable Eosinophils % Not Reportable Basophils % Not Reportable Absolute Neutrophils Not Reportable Absolute Lymphocytes Not Reportable Absolute Monocytes Not Reportable Absolute Eosinophils Not Reportable Absolute Basophils Not Reportable Retic Count (auto) Absolute Retic VBG pH VBG pCO2 VBG HCO3 VBG Base Excess Sodium Potassium Chloride Carbon Dioxide Anion Gap BUN Creatinine Est GFR ( Amer) Est GFR (Non-Af Amer) Glucose Lactic Acid 4.2 H Calcium Phosphorus Magnesium Iron TIBC % Saturation Ferritin Vitamin B12 Folate Urine Color YELLOW Urine Appearance CLEAR Urine pH 6.0 Ur Specific [place] 1.042 Urine Protein NEGATIVE Urine Glucose (UA) NEGATIVE Urine Ketones TRACE H Urine Blood NEGATIVE Urine Nitrite NEGATIVE Ur Leukocyte Esterase TRACE H Urine WBC (Auto) 1 Urine RBC (Auto) 0 Blood Type Antibody Screen 08/08/16 08/08/16 08/08/16 09:15 09:15 09:15 WBC RBC Hgb Hct MCV MCH MCHC RDW Plt Count Seg Neutrophils % Lymphocytes % Monocytes % Eosinophils % Basophils % Absolute Neutrophils Absolute Lymphocytes Absolute Monocytes Absolute Eosinophils Absolute Basophils Retic Count (auto) 1.50 Absolute Retic 0.068 VBG pH VBG pCO2 VBG HCO3 VBG Base Excess Sodium 144.8 Potassium 2.6 L* Chloride 102 Carbon Dioxide 25 Anion Gap 18 BUN 29 H Creatinine 0.99 Est GFR ( Amer) > 60 Est GFR (Non-Af Amer) 55 L Glucose 125 H Lactic Acid Calcium 8.6 Phosphorus 3.0 Magnesium 2.0 Iron 22 L TIBC 229 L % Saturation 10 Ferritin 308.00 H Vitamin B12 635.0 Folate 2.49 L Urine Color Urine Appearance Urine pH Ur Specific [place] Urine Protein Urine Glucose (UA) Urine Ketones Urine Blood Urine Nitrite Ur Leukocyte Esterase Urine WBC (Auto) Urine RBC (Auto) Blood Type Antibody Screen 08/08/16 09:15 WBC RBC Hgb Hct MCV MCH MCHC RDW Plt Count Seg Neutrophils % Lymphocytes % Monocytes % Eosinophils % Basophils % Absolute Neutrophils Absolute Lymphocytes Absolute Monocytes Absolute Eosinophils Absolute Basophils Retic Count (auto) Absolute Retic VBG pH VBG pCO2 VBG HCO3 VBG Base Excess Sodium Potassium Chloride Carbon Dioxide Anion Gap BUN Creatinine Est GFR ( Amer) Est GFR (Non-Af Amer) Glucose Lactic Acid Calcium Phosphorus Magnesium 1.9 Iron TIBC % Saturation Ferritin Vitamin B12 Folate Urine Color Urine Appearance Urine pH Ur Specific [place] Urine Protein Urine Glucose (UA) Urine Ketones Urine Blood Urine Nitrite Ur Leukocyte Esterase Urine WBC (Auto) Urine RBC (Auto) Blood Type Antibody Screen Impressions: Abdomen/Pelvis CT 08/07/16 00:00 IMPRESSION: There is thickening of the hoyt of the sigmoid colon as noted above with an apparent focal area of narrowing suspicious for colonic neoplasm or stricture. There is a moderate amount of gas and fecal material in the colon just proximal to this level. Clinical correlation is recommended. Colonoscopy may be of value for further evaluation. Other findings as noted above Head CT 08/07/16 00:00 IMPRESSION: CHRONIC CHANGES OF ATROPHY AND MICROVASCULAR ISCHEMIA. NO ACUTE PROCESS. Chest X-Ray 08/07/16 16:28 IMPRESSION: No acute cardiopulmonary process. No significant change from prior study. Chest CT 08/08/16 00:00 IMPRESSION: No CT evidence of metastatic disease to the chest. There is a persistent left dense nephrogram with moderate left hydronephrosis and upper hydroureter. Suspect left-sided ureteral impingement by the midline malignant appearing pelvic mass seen on yesterday's CT abdomen and pelvis Assessment & Plan - Diagnosis (1) Abdominal mass, LLQ (left lower quadrant) Is this a current diagnosis for this admission?: YesPlan: She may require a diverting procedure but definitely needs a colonoscopy to determine as well as possible left ureteral stent. Surprisingly her CT of the abdomen doesn't show mets but will check a CT of the chest and unfortunately she may have more disease at the time of surgery. (2) Altered mental status Qualifiers: Altered mental status type: disorientation Qualified Code(s): R41.0 - Disorientation, unspecified Is this a current diagnosis for this admission?: YesPlan: Unclear etiology, may want to check an ammonia to be complete (3) Anemia Qualifiers: Anemia type: folate deficiency Folate deficiency anemia type: dietary Qualified Code(s): D52.0 - Dietary folate deficiency anemia Is this a current diagnosis for this admission?: YesPlan: She also has clearly an iron deficiency and we will order replacement (4) Diabetes mellitus Qualifiers: Diabetes mellitus type: type 2 Diabetes mellitus complication status: with unspecified complications Diabetes mellitus joint terminal attack controller insulin use: without joint terminal attack controller use Qualified Code(s): E11.8 - Type 2 diabetes mellitus with unspecified complications; Z79.4 - half-way (current) use of insulin Is this a current diagnosis for this admission?: YesPlan: Per primary team (5) Weight loss of more than 10% body weight Is this a current diagnosis for this admission?: YesPlan: Nutritional support upon surgical intervention - Time Time Spent: Greater than 70 Minutes Critical Time spent with patient: 25-34 minutes Medications reviewed and adjusted accordingly: Yes Anticipated discharge: Other - Inpatient Certification I certify that my determination is in accordance with my understanding of Medicare's requirements for reasonable and necessary INPATIENT services [42 CFR 412.3e].: Yes Medical Necessity: Significant Comorbidiites Make Outpatient Treatment Too Risky
--- NOTE | 2016-08-08 18:16 | PDOC TRANSFER SUMMARY ---
General Admission Date/PCP: 08/07/16 16:22 AUGUSTUS QUIÑONES Admission Date: 08/07/16 Transfer Date: 08/08/16 Accepting Facility: [facility] Accepting Physician: Dr. Vigil Resuscitation Status: Full Code - Transfer Diagnosis (1) Abdominal mass, LLQ (left lower quadrant) Current Visit: Yes (2) SIRS (systemic inflammatory response syndrome) Current Visit: Yes (3) Weight loss of more than 10% body weight Current Visit: Yes (4) Diabetes mellitus Current Visit: Yes (5) Anemia Current Visit: Yes (6) Hypothyroidism Current Visit: Yes (7) Fecal impaction Current Visit: Yes (8) Altered mental status Current Visit: Yes (9) Cachexia Current Visit: Yes (10) Hydronephrosis concurrent with and due to ureteral stricture Current Visit: Yes - Transfer Medications Home Medications: No Home Medications 08/07/16 Transfer Medications: Current Medications Acetaminophen (Tylenol Soln 325 Mg/10.15 Ml Udcup) 650 mg PO Q4HP PRN PRN Reason: MILD PAIN OR FEVER Stop: 09/07/16 04:46 Acetaminophen (Tylenol 325 Mg Tablet) 650 mg PO .PREMED PRN PRN Reason: THIS MED IS NOT "PRN" Stop: 08/08/16 23:59 Last Admin: 08/08/16 15:08 Dose: 650 mg Albuterol/Ipratropium (Duoneb 3 Ml Ampul) 3 ml NEB RTQ6HP PRN PRN Reason: SHORTNESS OF BREATH Stop: 09/06/16 16:21 Dextrose (Dextrose Inj 50% Syringe (25 Gm/50 Ml)) 12.5 gm IV PRN PRN; Protocol PRN Reason: FOR BG 50-69 IN ALERT PATIENT Stop: 09/06/16 17:52 Dextrose (Dextrose Inj 50% Syringe (25 Gm/50 Ml)) 25 gm IV PRN PRN PRN Reason: Protocol Stop: 09/06/16 17:52 Diphenhydramine HCl (Benadryl Inj 50 Mg/1 Ml Vial) 25 mg IV .PREMED PRN PRN Reason: THIS MED IS NOT "PRN" Stop: 08/08/16 23:59 Last Admin: 08/08/16 15:08 Dose: 25 mg Docusate Sodium (Colace 100 Mg Capsule) 100 mg PO BID MAKAYLA Stop: 09/06/16 17:59 Last Admin: 08/07/16 21:00 Dose: Not Given Famotidine (Pepcid 20 Mg Tablet) 20 mg PO Q12 [facility] Stop: 09/07/16 09:59 Last Admin: 08/08/16 11:16 Dose: 20 mg Glucagon (Glucagen Inj 1 Mg Vial) 1 mg IM PRN PRN; Protocol PRN Reason: Evaluate for BG < 70 Stop: 09/06/16 17:52 Glucose (Glutose 40% Gel 15 Gm Tube) 15 gm PO PRN PRN; Protocol PRN Reason: FOR BG 50-69 IN ALERT PATIENT Stop: 09/06/16 17:52 Glucose (Glutose 40% Gel 15 Gm Tube) 30 gm PO PRN PRN; Protocol PRN Reason: FOR BG < 50 IN ALERT PATIENT Stop: 09/07/16 04:51 Haloperidol Lactate (Haldol 5 Mg/Ml Inj 1 Ml Vial) 2 mg IV Q4HP PRN Stop: 09/07/16 09:10 Heparin Sodium (Porcine) (Heparin Inj 5,000 Units/Ml 1 Ml Syringe) 5,000 unit SUBCUT Q8 [facility] Stop: 09/06/16 21:59 Last Admin: 08/08/16 15:07 Dose: 5,000 unit Sodium Chloride (Nacl 0.9% 1000 Ml Iv Soln) 1,000 mls @ 175 mls/hr IV CONTINUOUS PRN PRN Reason: THIS MED IS NOT "PRN" Stop: 09/06/16 16:28 Last Admin: 08/08/16 11:14 Dose: 1,000 ml Ferric Carboxymaltose 750 mg/ (Sodium Chloride) 265 mls @ 1,060 mls/hr IV .TODAY 08/08/16 PRN PRN Reason: THIS MED IS NOT "PRN" Stop: 08/08/16 23:59 Last Admin: 08/08/16 15:49 Dose: 750 mg Folic Acid 1 mg/ Sodium (Chloride) 50.2 mls @ 100.4 mls/hr IV DAILY@1500 [facility] Stop: 09/07/16 14:59 Last Admin: 08/08/16 16:35 Dose: 1 mg Ertapenem 1 gm/ Sodium (Chloride) 50 mls @ 100 mls/hr IV DAILY@1600 [facility] Stop: 08/15/16 15:59 Last Admin: 08/08/16 17:18 Dose: 1 gm Levothyroxine Sodium (Synthroid 0.05 Mg Tablet) 0.05 mg PO Q6AM MAKAYLA Stop: 09/08/16 05:59 Megestrol Acetate (Megace Sydnie 400 Mg/10 Ml Udcup) 400 mg PO DAILY MAKAYLA Stop: 09/07/16 09:59 Last Admin: 08/08/16 11:16 Dose: 400 mg Morphine Sulfate (Morphine 10 Mg/Ml Inj) 4 mg IV Q4HP PRN PRN Reason: PAIN Stop: 08/14/16 17:36 Last Admin: 08/08/16 04:53 Dose: 4 mg Ondansetron HCl (Zofran Inj/Pf 4 Mg/2 Ml Sdv) 4 mg IV Q6HP PRN PRN Reason: FOR NAUSEA/VOMITING Stop: 09/06/16 16:28 Ondansetron HCl (Zofran Odt 4 Mg Tablet) 4 mg PO Q6HP PRN PRN Reason: n/v Stop: 09/07/16 04:47 Pharmacy Profile Note (Medication Communication Order) 1 each [facility] .NOTICE NR Stop: 09/06/16 17:44 Pharmacy Profile Note (Medication Communication Order) 1 each MC .NOTICE NR Stop: 09/06/16 17:44 - Allergies Allergies/Adverse Reactions: Penicillins Allergy (Verified 08/07/16 14:32) - Diet/Activity Discharge Diet: Regular Discharge Activity: Supervised Activity Hospital Course Hospital Course: SUMMER LUZ is a 71 year old female with a past medical history significant only for diabetes mellitus who presents to the emergency department from the surgeon's office. Patient has been increasingly lethargic today and worsening over the past 2 weeks. Patient has not been eating or drinking and is noted to have a significant abdominal mass on CT obtained from [facility]. Patient's daughter reports that she's gone from a size 16 to a size 8 or less in under 6 months losing approximately 100 pounds. She reports that her mother as well as cold but denies any fevers or chills. Patient admits to abdominal pain. Patient denies any hematochezia or melena. Patient denies any current nausea or vomiting. History is primarily obtained from patient's daughter as patient is of quite lethargic at bedside. Her daughter does note that she's had some increasing problems with her memory over the last 6 months. Patient is referred to hospital service for SIRS, abdominal pain. Patient is found on CT to have a sigmoid mass with concomittent left ureter ureteral compression with hydroureter and hydronephrosis. Additionally, patient has significant fecal impaction proximal to this mass. After discussion with surgery, they feel that patient would be better served at a facility where patient could have ureteral stenting prior to any surgical intervention. Patient was seen by oncology as well. Patient's CEA is grossly elevated. CA-19-[address] done of the chest and head were negative for any metastatic lesions. Patient's acute renal failure has improved with hydration. Her pain is improved with morphine. Patient is more cooperative with taking her medications particularly when her family is at the bedside. We are thankful to our colleagues at [facility] for accepting this patient in transfer. Physical Exam Vital Signs: Temp Pulse Resp BP Pulse Ox 97.3 F 95 16 118/72 100 08/08/16 15:45 08/08/16 15:45 08/08/16 15:45 08/08/16 15:45 08/08/16 15:45 Intake & Output 08/07/16 08/08/16 08/09/16 06:59 06:59 06:59 Intake Total 1089 100 Output Total 0 Balance 1089 100 Weight 47.8 kg Exam: General: Cachectic, chronically ill-appearing, Awake alert and oriented x1, no acute respiratory distress HEENT: AT/NC, PERRL, EOMI, oropharynx is moist, pink, no scleral icterus, no conjunctival injection Neck: No JVD, trachea midline Chest: Clear to auscultation bilaterally, no wheezes rhonchi or rales CV: Regular rate and rhythm, normal S1 and S2, no rub, or gallop Abdomen:tender to palpation llq, mildly distended, active bowel sounds; no rebound, rigidity, or guarding Extremities: No cyanosis, clubbing or edema Neuro: Cranial nerves II through XII are grossly intact without focal deficits; awake alert and oriented x1 Psych: Flat affect Skin: No rashes or lesions visible Results Laboratory Results: 08/08/16 09:15 08/08/16 09:15 08/07/16 08/07/16 08/07/16 20:12 20:12 20:12 WBC RBC Hgb Hct MCV MCH MCHC RDW Plt Count Seg Neutrophils % Lymphocytes % Monocytes % Eosinophils % Basophils % Absolute Neutrophils Absolute Lymphocytes Absolute Monocytes Absolute Eosinophils Absolute Basophils Retic Count (auto) Absolute Retic VBG pH 7.44 H VBG pCO2 45.2 VBG HCO3 30.1 VBG Base Excess 5.5 Sodium Potassium Chloride Carbon Dioxide Anion Gap BUN Creatinine Est GFR ( Amer) Est GFR (Non-Af Amer) Glucose Lactic Acid 2.1 Calcium Phosphorus Magnesium Iron TIBC % Saturation Ferritin Vitamin B12 Folate Urine Color Urine Appearance Urine pH Ur Specific Moose Urine Protein Urine Glucose (UA) Urine Ketones Urine Blood Urine Nitrite Ur Leukocyte Esterase Urine WBC (Auto) Urine RBC (Auto) Blood Type O POSITIVE Antibody Screen NEGATIVE 08/08/16 08/08/16 08/08/16 00:54 03:39 09:15 WBC 34.3 H* RBC 4.55 Hgb 10.4 L Hct 33.4 L MCV 74 L MCH 23.0 L MCHC 31.3 L RDW 18.1 H Plt Count 344 Seg Neutrophils % Not Reportable Lymphocytes % Not Reportable Monocytes % Not Reportable Eosinophils % Not Reportable Basophils % Not Reportable Absolute Neutrophils Not Reportable Absolute Lymphocytes Not Reportable Absolute Monocytes Not Reportable Absolute Eosinophils Not Reportable Absolute Basophils Not Reportable Retic Count (auto) Absolute Retic VBG pH VBG pCO2 VBG HCO3 VBG Base Excess Sodium Potassium Chloride Carbon Dioxide Anion Gap BUN Creatinine Est GFR ( Amer) Est GFR (Non-Af Amer) Glucose Lactic Acid 4.2 H Calcium Phosphorus Magnesium Iron TIBC % Saturation Ferritin Vitamin B12 Folate Urine Color YELLOW Urine Appearance CLEAR Urine pH 6.0 Ur Specific Moose 1.042 Urine Protein NEGATIVE Urine Glucose (UA) NEGATIVE Urine Ketones TRACE H Urine Blood NEGATIVE Urine Nitrite NEGATIVE Ur Leukocyte Esterase TRACE H Urine WBC (Auto) 1 Urine RBC (Auto) 0 Blood Type Antibody Screen 08/08/16 08/08/16 08/08/16 09:15 09:15 09:15 WBC RBC Hgb Hct MCV MCH MCHC RDW Plt Count Seg Neutrophils % Lymphocytes % Monocytes % Eosinophils % Basophils % Absolute Neutrophils Absolute Lymphocytes Absolute Monocytes Absolute Eosinophils Absolute Basophils Retic Count (auto) 1.50 Absolute Retic 0.068 VBG pH VBG pCO2 VBG HCO3 VBG Base Excess Sodium 144.8 Potassium 2.6 L* Chloride 102 Carbon Dioxide 25 Anion Gap 18 BUN 29 H Creatinine 0.99 Est GFR ( Amer) > 60 Est GFR (Non-Af Amer) 55 L Glucose 125 H Lactic Acid Calcium 8.6 Phosphorus 3.0 Magnesium 2.0 Iron 22 L TIBC 229 L % Saturation 10 Ferritin 308.00 H Vitamin B12 635.0 Folate 2.49 L Urine Color Urine Appearance Urine pH Ur Specific Moose Urine Protein Urine Glucose (UA) Urine Ketones Urine Blood Urine Nitrite Ur Leukocyte Esterase Urine WBC (Auto) Urine RBC (Auto) Blood Type Antibody Screen 08/08/16 09:15 WBC RBC Hgb Hct MCV MCH MCHC RDW Plt Count Seg Neutrophils % Lymphocytes % Monocytes % Eosinophils % Basophils % Absolute Neutrophils Absolute Lymphocytes Absolute Monocytes Absolute Eosinophils Absolute Basophils Retic Count (auto) Absolute Retic VBG pH VBG pCO2 VBG HCO3 VBG Base Excess Sodium Potassium Chloride Carbon Dioxide Anion Gap BUN Creatinine Est GFR ( Amer) Est GFR (Non-Af Amer) Glucose Lactic Acid Calcium Phosphorus Magnesium 1.9 Iron TIBC % Saturation Ferritin Vitamin B12 Folate Urine Color Urine Appearance Urine pH Ur Specific Moose Urine Protein Urine Glucose (UA) Urine Ketones Urine Blood Urine Nitrite Ur Leukocyte Esterase Urine WBC (Auto) Urine RBC (Auto) Blood Type Antibody Screen Impressions: Abdomen/Pelvis CT 08/07/16 00:00 IMPRESSION: There is thickening of the hoyt of the sigmoid colon as noted above with an apparent focal area of narrowing suspicious for colonic neoplasm or stricture. There is a moderate amount of gas and fecal material in the colon just proximal to this level. Clinical correlation is recommended. Colonoscopy may be of value for further evaluation. Other findings as noted above Head CT 08/07/16 00:00 IMPRESSION: CHRONIC CHANGES OF ATROPHY AND MICROVASCULAR ISCHEMIA. NO ACUTE PROCESS. Chest X-Ray 08/07/16 16:28 IMPRESSION: No acute cardiopulmonary process. No significant change from prior study. Chest CT 08/08/16 00:00 IMPRESSION: No CT evidence of metastatic disease to the chest. There is a persistent left dense nephrogram with moderate left hydronephrosis and upper hydroureter. Suspect left-sided ureteral impingement by the midline malignant appearing pelvic mass seen on yesterday's CT abdomen and pelvis Plan Time Spent: Greater than 30 Minutes
[2016-08-08] MEDS: DOCUSATE SODIUM 100 MG CAPSULE PO SCH (18:37)
[2016-08-08] MEDS: HALOPERIDOL LACTATE INJ 5 MG/1 ML VIAL IV PRN (18:56)
[2016-08-08 20:13] LABS: PATH REVIEW PATHOLOGIST REVIEWED
[2016-08-09] MEDS: HALOPERIDOL LACTATE INJ 5 MG/1 ML VIAL IV PRN ×5 (00:12→18:34)
[2016-08-09] MEDS: MORPHINE SULFATE 10 MG/ML INJ IV PRN ×3 (00:57→23:03)
[2016-08-09] MEDS: NORMAL SALINE 1000 ML 1,000 ML IV PRN ×2 (02:39→08:53)
[2016-08-09] MEDS: LEVOTHYROXINE SODIUM 0.05 MG TABLET PO SCH (05:44)
[2016-08-09] MEDS: HEPARIN SOD (PORCINE) 5,000 UNIT/ML 1 ML SYRINGE SUBCUT SCH ×3 (05:44→22:57)
[2016-08-09] MEDS ORDERED: LEVOTHYROXINE SODIUM 0.025 MG TABLET PO SCH (06:00)
[2016-08-09 07:09] LABS: HEMATOCRIT 36.2 % (36.0-47.0); HGB HCT DIFFERENCE -3.2; MEAN CORPUSCULAR HEMOGLOBIN 22.7 pg (27.0-33.4); MEAN CORPUSCULAR HGB CONC 30.4 g/dL (32.0-36.0); MEAN CORPUSCULAR VOLUME 75 fl (80-97); RED BLOOD COUNT 4.84 10^6/uL (3.72-5.28); RED CELL DISTRIBUTION WIDTH 18.3 % (11.5-14.0)
[2016-08-09 07:39] LABS: ANION GAP 15 (5-19); BLOOD UREA NITROGEN 21 mg/dL (7-20); CALCIUM 8.8 mg/dL (8.4-10.2); CARBON DIOXIDE 26 mmol/L (22-30); CHLORIDE 112 mmol/L (98-107); CREATININE RESULT 0.89 mg/dL (0.52-1.25); GLUCOSE 128 mg/dL (75-110); MAGNESIUM 2.1 mg/dL (1.6-2.3); PHOSPHORUS 1.6 mg/dL (2.5-4.5); POTASSIUM 3.2 mmol/L (3.6-5.0); SODIUM 152.9 mmol/L (137-145)
[2016-08-09 08:18] LABS: ANISOCYTOSIS 2+; BAND NEUTROPHILS % (MANUAL) 3 % (3-5); BASOPHILS % (MANUAL) 0 % (0-2); EOSINOPHILS % (MANUAL) 2 % (0-6); HYPOCHROMASIA 1+; LYMPHOCYTES % (MANUAL) 4 % (13-45); MICROCYTOSIS 1+; PLATELET CLUMPS PRESENT; TOTAL CELLS COUNTED 100; TOXIC GRANULATION SLIGHT; TOXIC VACUOLATION PRESENT
[2016-08-09] MEDS: FAMOTIDINE 20 MG TABLET PO SCH ×2 (09:03→22:56)
[2016-08-09] MEDS: DOCUSATE SODIUM 100 MG CAPSULE PO SCH ×2 (09:03→17:15)
[2016-08-09] MEDS: MEGESTROL ACETATE SUSP 400 MG/10 ML UDCUP PO SCH (09:03)
[2016-08-09] MEDS ORDERED: LEVOFLOXACIN 750 MG/D5W RTU 750 MG/150 ML RTUPB IV SCH (10:00)
--- NOTE | 2016-08-09 10:00 | Physician Advisory Note ---
Physician Advisor ProgressNote .: Pursuant to the plan for [facility], I have reviewed the medical record for this patient. Physician Advisor Statement: Possible documentation opportunities if attending agrees: 1. "SIRS, present on admission, likely due to " [sigmoid mass with hydronephrosis & proximal fecal impaction & associated abd pain?] 2. ? - "Acute metabolic encephalopathy due to " [ARF, hydronephrosis, proximal fecal impaction, ...] 3. "underweight with protein-calorie malnutrition [state mild, mod, or severe] with BMI 19.1, 100# wt loss over 6mo, suspected sigmoid colon CA... [?appetite loss, ]" [if possible, give specifics on intake, loss of SQ fat & muscle mass, diminished hand psych specialist strength, & clinical importance such as (A) nutritional assessment ordered, (B) modified diet or supplements ordered, (C) additional labs ordered, (D) prolonged wound healing time, (E) delayed infxn clearance] - - - Auditors are strict about the dx of malnutrition - has to be explicitly spelled out. Thanks! CK
[2016-08-09] MEDS: DEXTROSE 5%-1/2 NORMAL SALINE 1,000 ML IV PRN ×2 (10:21→17:17)
[2016-08-09] MEDS: POTASSI CL 20 MEQ/50 ML RIDER 20 MEQ/50 ML RTUPB IV SCH ×3 (10:27→15:03)
[2016-08-09] MEDS ORDERED: PHOSPHORUS #1 250 MG TABLET PO SCH (11:00)
[2016-08-09] MEDS ORDERED: POTASSIUM CHLORIDE 10 MEQ TABLET.SA PO ONE (11:00)
[2016-08-09] MEDS ORDERED: MULTIVITAMINS W-IRON TABLET, CHEWABLE PO ONE (11:30)
[2016-08-09] MEDS ORDERED: POTASSIUM PHOS,M-BASIC-D-BASIC 15 MMOL in NORMAL SALINE 250 ML IV ONE (12:00)
--- NOTE | 2016-08-09 13:06 | PDOC PROGRESS REPORT ---
Subjective Progress Note for:: 08/09/16 Subjective:: Patient resting comfortably when I visited her. She just received Haldol. Patient apparently overnight was trying to get up and out of bed. This morning she threw her medication. Unable to obtain review of systems secondary to patient temperament. Physical Exam Vital Signs: Temp Pulse Resp BP Pulse Ox 98.0 F 90 16 132/78 H 100 08/09/16 03:25 08/09/16 06:40 08/09/16 03:25 08/09/16 03:25 08/09/16 03:25 Intake & Output 08/08/16 08/09/16 08/10/16 06:59 06:59 06:59 Intake Total 1089 4997 Output Total 0 Balance 1089 4997 Weight 47.8 kg 55.4 kg Exam: General: Cachectic, chronically ill-appearing, no acute respiratory distress HEENT: AT/NC, PERRL, EOMI, oropharynx is moist, pink, no scleral icterus, no conjunctival injection Neck: No JVD, trachea midline Chest: Clear to auscultation bilaterally, no wheezes rhonchi or rales CV: Regular rate and rhythm, normal S1 and S2, no rub, or gallop Abdomen:tender to palpation llq, mildly distended, active bowel sounds; no rebound, rigidity; voluntary guarding Extremities: No cyanosis, clubbing or edema Neuro: Cranial nerves II through XII are grossly intact without focal deficits Psych: Flat affect, resting comfortably Skin: No rashes or lesions visible Results Laboratory Results: 08/08/16 08/08/16 08/08/16 09:15 09:15 09:15 WBC 34.3 H* RBC 4.55 Hgb 10.4 L Hct 33.4 L MCV 74 L MCH 23.0 L MCHC 31.3 L RDW 18.1 H Plt Count 344 Seg Neutrophils % Not Reportable Lymphocytes % Not Reportable Monocytes % Not Reportable Eosinophils % Not Reportable Basophils % Not Reportable Absolute Neutrophils Not Reportable Absolute Lymphocytes Not Reportable Absolute Monocytes Not Reportable Absolute Eosinophils Not Reportable Absolute Basophils Not Reportable Retic Count (auto) 1.50 Absolute Retic 0.068 Sodium 144.8 Potassium 2.6 L* Chloride 102 Carbon Dioxide 25 Anion Gap 18 BUN 29 H Creatinine 0.99 Est GFR ( Amer) > 60 Est GFR (Non-Af Amer) 55 L Glucose 125 H Calcium 8.6 Phosphorus 3.0 Magnesium 2.0 Iron TIBC % Saturation Ferritin Vitamin B12 Folate 08/08/16 08/08/16 09:15 09:15 WBC RBC Hgb Hct MCV MCH MCHC RDW Plt Count Seg Neutrophils % Lymphocytes % Monocytes % Eosinophils % Basophils % Absolute Neutrophils Absolute Lymphocytes Absolute Monocytes Absolute Eosinophils Absolute Basophils Retic Count (auto) Absolute Retic Sodium Potassium Chloride Carbon Dioxide Anion Gap BUN Creatinine Est GFR ( Amer) Est GFR (Non-Af Amer) Glucose Calcium Phosphorus Magnesium 1.9 Iron 22 L TIBC 229 L % Saturation 10 Ferritin 308.00 H Vitamin B12 635.0 Folate 2.49 L Impressions: Abdomen/Pelvis CT 08/07/16 00:00 IMPRESSION: There is thickening of the hoyt of the sigmoid colon as noted above with an apparent focal area of narrowing suspicious for colonic neoplasm or stricture. There is a moderate amount of gas and fecal material in the colon just proximal to this level. Clinical correlation is recommended. Colonoscopy may be of value for further evaluation. Other findings as noted above Head CT 08/07/16 00:00 IMPRESSION: CHRONIC CHANGES OF ATROPHY AND MICROVASCULAR ISCHEMIA. NO ACUTE PROCESS. Chest X-Ray 08/07/16 16:28 IMPRESSION: No acute cardiopulmonary process. No significant change from prior study. Chest CT 08/08/16 00:00 IMPRESSION: No CT evidence of metastatic disease to the chest. There is a persistent left dense nephrogram with moderate left hydronephrosis and upper hydroureter. Suspect left-sided ureteral impingement by the midline malignant appearing pelvic mass seen on yesterday's CT abdomen and pelvis Assessment & Plan - Diagnosis (1) Abdominal mass, LLQ (left lower quadrant) Is this a current diagnosis for this admission?: YesPlan: Appears on CT the patient has a sigmoid mass and subsequent fecal impaction proximal to the mass. Appreciate surgery input on this case. Attempt cathartics both oral and per rectum. Hopefully plan for a sigmoidoscopy within the next several days. CEA and CA-19-9 are both elevated. (2) SIRS (systemic inflammatory response syndrome) Is this a current diagnosis for this admission?: YesPlan: Pending blood cultures, urine culture. Patient on ertapenem day #2 for intra- abdominal etiology; given that patient has had very minimal change in her white count from this, will change to ertapenem as there is some concern for possible colitis or low-grade peritonitis. (3) Weight loss of more than 10% body weight Is this a current diagnosis for this admission?: YesPlan: Consult dietary. Suspect that this is likely related to patient's underlying previously undiagnosed malignancy. Patient currently appears cachectic and is quite weak. Patient on ensure and Magic cup as well as Megace. Will monitor patient for refeeding syndrome. Will place NG and tube feeds if needed. A shallow profound protein calorie malnourishment. (4) Diabetes mellitus Qualifiers: Diabetes mellitus type: type 2 Diabetes mellitus complication status: with unspecified complications Diabetes mellitus usp insulin use: without usp use Qualified Code(s): E11.8 - Type 2 diabetes mellitus with unspecified complications; Z79.4 - rodent exterminator (current) use of insulin Is this a current diagnosis for this admission?: YesPlan: Patient's hemoglobin A1c is 5.8. Accu-Cheks every 6. 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 Begin patient on IV folic acid and patient has received IV iron from hematology. Appreciate their input into this patient's case. (6) Hypothyroidism Qualifiers: Hypothyroidism type: unspecified Qualified Code(s): E03.9 - Hypothyroidism, unspecified Is this a current diagnosis for this admission?: YesPlan: Patient currently hypothyroid and will initiate on 50 g of Synthroid daily. (7) Fecal impaction Is this a current diagnosis for this admission?: YesPlan: Patient will have cathartics from both upper and lower. Secondary to mass. Appreciate surgery's input. (8) Altered mental status Qualifiers: Altered mental status type: disorientation Qualified Code(s): R41.0 - Disorientation, unspecified Is this a current diagnosis for this admission?: YesPlan: Feel that patient's current altered mental status is secondary to underlying sepsis, malignancy. (9) Cachexia Is this a current diagnosis for this admission?: YesPlan: Have added ensure and Magic cup 3 times a day. (10) Hydronephrosis concurrent with and due to ureteral stricture Is this a current diagnosis for this admission?: YesPlan: We'll repeat kidney ultrasound today to monitor for improvement. - Time Time Spent with patient: 35 or more minutes Medications reviewed and adjusted accordingly: Yes [facility]ated [facility] urology intervention/surgical intervention
[2016-08-09] MEDS: FOLIC ACID 1 MG in NORMAL SALINE 50 ML IV SCH (14:15)
[2016-08-09] MEDS: ERTAPENEM SODIUM 1 GM in NORMAL SALINE 50 ML IV SCH (15:04)
--- NOTE | 2016-08-09 17:38 | PDOC PROGRESS REPORT ---
Subjective Progress Note for:: 08/09/16 Subjective:: Sleeping at present. Physical Exam Vital Signs: Temp Pulse Resp BP Pulse Ox 98.1 F 107 H 16 109/62 95 08/09/16 15:34 08/09/16 16:35 08/09/16 16:35 08/09/16 15:34 08/09/16 16:35 Intake & Output 08/08/16 08/09/16 08/10/16 06:59 06:59 06:59 Intake Total 1089 4997 1426 Output Total 0 Balance 1089 4997 1426 Weight 47.8 kg 55.4 kg General appearance: PRESENT: no acute distress Head exam: PRESENT: normocephalic Eye exam: PRESENT: conjunctiva pale Respiratory exam: PRESENT: clear to auscultation mitesh Cardiovascular exam: PRESENT: RRR GI/Abdominal exam: PRESENT: tenderness Results Laboratory Results: 08/09/16 07:00 08/09/16 07:00 08/08/16 08/09/16 08/09/16 09:15 07:00 07:00 WBC 27.0 H RBC 4.84 Hgb 11.0 L Hct 36.2 MCV 75 L MCH 22.7 L MCHC 30.4 L RDW 18.3 H Plt Count 290 Seg Neutrophils % Not Reportable Lymphocytes % Not Reportable Monocytes % Not Reportable Eosinophils % Not Reportable Basophils % Not Reportable Absolute Neutrophils Not Reportable Absolute Lymphocytes Not Reportable Absolute Monocytes Not Reportable Absolute Eosinophils Not Reportable Absolute Basophils Not Reportable Sodium 152.9 H Potassium 3.2 L Chloride 112 H Carbon Dioxide 26 Anion Gap 15 BUN 21 H Creatinine 0.89 Est GFR ( Amer) > 60 Est GFR (Non-Af Amer) > 60 Glucose 128 H Calcium 8.8 Phosphorus 1.6 L Magnesium 2.1 Transferrin 159 L Impressions: Abdomen/Pelvis CT 08/07/16 00:00 IMPRESSION: There is thickening of the hoyt of the sigmoid colon as noted above with an apparent focal area of narrowing suspicious for colonic neoplasm or stricture. There is a moderate amount of gas and fecal material in the colon just proximal to this level. Clinical correlation is recommended. Colonoscopy may be of value for further evaluation. Other findings as noted above Head CT 08/07/16 00:00 IMPRESSION: CHRONIC CHANGES OF ATROPHY AND MICROVASCULAR ISCHEMIA. NO ACUTE PROCESS. Chest X-Ray 08/07/16 16:28 IMPRESSION: No acute cardiopulmonary process. No significant change from prior study. Chest CT 08/08/16 00:00 IMPRESSION: No CT evidence of metastatic disease to the chest. There is a persistent left dense nephrogram with moderate left hydronephrosis and upper hydroureter. Suspect left-sided ureteral impingement by the midline malignant appearing pelvic mass seen on yesterday's CT abdomen and pelvis Renal Ultrasound 08/09/16 00:00 IMPRESSION: Moderate left hydronephrosis, similar compared to CT exam 08/07/2016 Assessment & Plan - Diagnosis (1) Abdominal mass, LLQ (left lower quadrant) Is this a current diagnosis for this admission?: YesPlan: Awaiting transfer to outside facility for surgical intervention and ureteral stent (2) Altered mental status Qualifiers: Altered mental status type: disorientation Qualified Code(s): R41.0 - Disorientation, unspecified Is this a current diagnosis for this admission?: Yes (3) Anemia Qualifiers: Anemia type: folate deficiency Folate deficiency anemia type: dietary Qualified Code(s): D52.0 - Dietary folate deficiency anemia Is this a current diagnosis for this admission?: YesPlan: Iron and folate being replaced (4) Diabetes mellitus Qualifiers: Diabetes mellitus type: type 2 Diabetes mellitus complication status: with unspecified complications Diabetes mellitus manager terminal insulin use: without fpc use Qualified Code(s): E11.8 - Type 2 diabetes mellitus with unspecified complications; Z79.4 - FDC (current) use of insulin Is this a current diagnosis for this admission?: Yes (5) Weight loss of more than 10% body weight Is this a current diagnosis for this admission?: Yes - Time Time Spent with patient: 25-34 minutes Critical Time spent with patient: 15-24 minutes Medications reviewed and adjusted accordingly: Yes Anticipated discharge: Other
[2016-08-10 06:13] LABS: HEMATOCRIT 29.4 % (36.0-47.0); HEMOGLOBIN 9.2 g/dL (12.0-15.5); HGB HCT DIFFERENCE -1.8; MEAN CORPUSCULAR HEMOGLOBIN 23.1 pg (27.0-33.4); MEAN CORPUSCULAR HGB CONC 31.1 g/dL (32.0-36.0); MEAN CORPUSCULAR VOLUME 74 fl (80-97); RED BLOOD COUNT 3.97 10^6/uL (3.72-5.28); RED CELL DISTRIBUTION WIDTH 18.6 % (11.5-14.0)
[2016-08-10 06:29] LABS: ANION GAP 10 (5-19); BLOOD UREA NITROGEN 14 mg/dL (7-20); CALCIUM 8.2 mg/dL (8.4-10.2); CARBON DIOXIDE 25 mmol/L (22-30); CHLORIDE 114 mmol/L (98-107); CREATININE RESULT 0.81 mg/dL (0.52-1.25); GLUCOSE 169 mg/dL (75-110); POTASSIUM 3.6 mmol/L (3.6-5.0)
[2016-08-10 06:49] LABS: BAND NEUTROPHILS % (MANUAL) 2 % (3-5); BASOPHILS % (MANUAL) 0 % (0-2); EOSINOPHILS % (MANUAL) 2 % (0-6); LYMPHOCYTES % (MANUAL) 5 % (13-45); TOTAL CELLS COUNTED 100
[2016-08-10 06:55] LABS: ANISOCYTOSIS 1+; TOXIC GRANULATION SLIGHT; TOXIC VACUOLATION PRESENT
[2016-08-10 06:56] LABS: HYPOCHROMASIA SLIGHT; MICROCYTOSIS 1+; PLATELET CLUMPS PRESENT; TARGET CELLS SLIGHT
[2016-08-10 07:00] LABS: POIKILOCYTOSIS SLIGHT
[2016-08-10 07:05] LABS: WHITE BLOOD COUNT 31.6 10^3/uL (4.0-10.5)
[2016-08-10] MEDS: LEVOTHYROXINE SODIUM 0.05 MG TABLET PO SCH (07:11)
[2016-08-10] MEDS: HEPARIN SOD (PORCINE) 5,000 UNIT/ML 1 ML SYRINGE SUBCUT SCH (07:11)
--- NOTE | 2016-08-10 08:44 | PDOC PROGRESS REPORT ---
Subjective Subjective:: Sitting at bedside. No complaints. Still abdominal tenderness. Reports passing gas and having BM. Nursing has BM recorded as well. Physical Exam Vital Signs: Temp Pulse Resp BP Pulse Ox 97.6 F 100 18 118/65 97 08/10/16 07:25 08/10/16 07:25 08/10/16 07:25 08/10/16 07:25 08/10/16 07:25 Intake & Output 08/09/16 08/10/16 08/11/16 06:59 06:59 06:59 Intake Total 4997 1626 Output Total 0 Balance 4997 1626 Weight 55.4 kg General appearance: PRESENT: no acute distress GI/Abdominal exam: PRESENT: distended - Mild distention., soft, tenderness - Mild tender to palpation, left lower quadrant. Neurological exam: PRESENT: other - Less lethargic than yesterday. Results Laboratory Results: 08/10/16 05:55 08/10/16 05:55 08/10/16 08/10/16 05:55 05:55 WBC 31.6 H* RBC 3.97 Hgb 9.2 L Hct 29.4 L MCV 74 L MCH 23.1 L MCHC 31.1 L RDW 18.6 H Plt Count 251 Seg Neutrophils % Not Reportable Lymphocytes % Not Reportable Monocytes % Not Reportable Eosinophils % Not Reportable Basophils % Not Reportable Absolute Neutrophils Not Reportable Absolute Lymphocytes Not Reportable Absolute Monocytes Not Reportable Absolute Eosinophils Not Reportable Absolute Basophils Not Reportable Sodium 149.0 H Potassium 3.6 Chloride 114 H Carbon Dioxide 25 Anion Gap 10 BUN 14 Creatinine 0.81 Est GFR ( Amer) > 60 Est GFR (Non-Af Amer) > 60 Glucose 169 H Calcium 8.2 L Impressions: Abdomen/Pelvis CT 08/07/16 00:00 IMPRESSION: There is thickening of the hoyt of the sigmoid colon as noted above with an apparent focal area of narrowing suspicious for colonic neoplasm or stricture. There is a moderate amount of gas and fecal material in the colon just proximal to this level. Clinical correlation is recommended. Colonoscopy may be of value for further evaluation. Other findings as noted above Head CT 08/07/16 00:00 IMPRESSION: CHRONIC CHANGES OF ATROPHY AND MICROVASCULAR ISCHEMIA. NO ACUTE PROCESS. Chest X-Ray 08/07/16 16:28 IMPRESSION: No acute cardiopulmonary process. No significant change from prior study. Chest CT 08/08/16 00:00 IMPRESSION: No CT evidence of metastatic disease to the chest. There is a persistent left dense nephrogram with moderate left hydronephrosis and upper hydroureter. Suspect left-sided ureteral impingement by the midline malignant appearing pelvic mass seen on yesterday's CT abdomen and pelvis Renal Ultrasound 08/09/16 00:00 IMPRESSION: Moderate left hydronephrosis, similar compared to CT exam 08/07/2016 Assessment & Plan - Diagnosis (1) Abdominal mass, LLQ (left lower quadrant) Is this a current diagnosis for this admission?: YesPlan: Late note. Rounding late for 08/09/2016. Indistinct lower abdominal mass which looks to invade the retroperitoneum. Originally thought this was a sigmoid cancer, however CA-19-9 very elevated, raising the concern for pancreatic cancer as well. CEA 265. Left hydronephrosis. Transfer has been accepted, just awaiting beds. (2) Altered mental status Qualifiers: Altered mental status type: disorientation Qualified Code(s): R41.0 - Disorientation, unspecified Is this a current diagnosis for this admission?: Yes (3) Diabetes mellitus Qualifiers: Diabetes mellitus type: type 2 Diabetes mellitus complication status: with unspecified complications Diabetes mellitus care home insulin use: without care home use Qualified Code(s): E11.8 - Type 2 diabetes mellitus with unspecified complications; Z79.4 - retirement (current) use of insulin Is this a current diagnosis for this admission?: Yes (4) Hypothyroidism Qualifiers: Hypothyroidism type: unspecified Qualified Code(s): E03.9 - Hypothyroidism, unspecified Is this a current diagnosis for this admission?: Yes (5) Lethargy Is this a current diagnosis for this admission?: Yes (6) SIRS (systemic inflammatory response syndrome) Is this a current diagnosis for this admission?: Yes (7) Weight loss of more than 10% body weight Is this a current diagnosis for this admission?: Yes
[2016-08-10 09:08] LABS: PROTHROMBIN TIME 16.3 SEC (11.4-15.4)
[2016-08-10 09:09] LABS: PARTIAL THROMBOPLASTIN TIME 40.3 SEC (23.5-35.8)
[2016-08-10] MEDS: MORPHINE SULFATE 10 MG/ML INJ IV PRN ×2 (09:23→17:49)
[2016-08-10] MEDS: FAMOTIDINE 20 MG TABLET PO SCH ×2 (09:24→21:44)
[2016-08-10] MEDS: MEGESTROL ACETATE SUSP 400 MG/10 ML UDCUP PO SCH (09:24)
[2016-08-10] MEDS: DOCUSATE SODIUM 100 MG CAPSULE PO SCH ×2 (09:24→17:26)
[2016-08-10] MEDS ORDERED: MULTIVITAMINS W-IRON TABLET, CHEWABLE PO SCH (10:00)
[2016-08-10] MEDS ORDERED: POTASSIUM PHOS,M-BASIC-D-BASIC 30 MMOL in NORMAL SALINE 500 ML IV ONE (10:30)
[2016-08-10] MEDS: FOLIC ACID 1 MG in NORMAL SALINE 50 ML IV SCH (15:15)
[2016-08-10] MEDS: ERTAPENEM SODIUM 1 GM in NORMAL SALINE 50 ML IV SCH (15:15)
--- NOTE | 2016-08-10 17:03 | PDOC PROGRESS REPORT ---
Subjective Progress Note for:: 08/10/16 Subjective:: Patient still having abdominal pain. She is passing some air and some stool. No acute events overnight. Patient denies chest pain, shortness of breath, fevers, chills, headache, new onset weakness. Physical Exam Vital Signs: Temp Pulse Resp BP Pulse Ox 97.4 F 95 18 115/66 99 08/10/16 03:46 08/10/16 06:34 08/10/16 03:46 08/10/16 03:46 08/10/16 03:46 Intake & Output 08/09/16 08/10/16 08/11/16 06:59 06:59 06:59 Intake Total 4997 1626 Output Total 0 Balance 4997 1626 Weight 55.4 kg Exam: General: Cachectic, chronically ill-appearing, no acute respiratory distress HEENT: AT/NC, PERRL, EOMI, oropharynx is moist, pink, no scleral icterus, no conjunctival injection Neck: No JVD, trachea midline Chest: Clear to auscultation bilaterally, no wheezes rhonchi or rales CV: Regular rate and rhythm, normal S1 and S2, no rub, or gallop Abdomen:Tender to palpation LLQ, mildly distended, active bowel sounds; no rebound, rigidity; voluntary guarding Extremities: No cyanosis, clubbing or edema Neuro: Cranial nerves II through XII are grossly intact without focal deficits Psych: Flat affect, resting comfortably Skin: No rashes or lesions visible Results Laboratory Results: 08/10/16 05:55 08/10/16 05:55 08/08/16 08/09/16 08/09/16 09:15 07:00 07:00 WBC 27.0 H RBC 4.84 Hgb 11.0 L Hct 36.2 MCV 75 L MCH 22.7 L MCHC 30.4 L RDW 18.3 H Plt Count 290 Seg Neutrophils % Not Reportable Lymphocytes % Not Reportable Monocytes % Not Reportable Eosinophils % Not Reportable Basophils % Not Reportable Absolute Neutrophils Not Reportable Absolute Lymphocytes Not Reportable Absolute Monocytes Not Reportable Absolute Eosinophils Not Reportable Absolute Basophils Not Reportable Sodium 152.9 H Potassium 3.2 L Chloride 112 H Carbon Dioxide 26 Anion Gap 15 BUN 21 H Creatinine 0.89 Est GFR ( Amer) > 60 Est GFR (Non-Af Amer) > 60 Glucose 128 H Calcium 8.8 Phosphorus 1.6 L Magnesium 2.1 Transferrin 159 L 08/10/16 08/10/16 05:55 05:55 WBC 31.6 H* RBC 3.97 Hgb 9.2 L Hct 29.4 L MCV 74 L MCH 23.1 L MCHC 31.1 L RDW 18.6 H Plt Count 251 Seg Neutrophils % Not Reportable Lymphocytes % Not Reportable Monocytes % Not Reportable Eosinophils % Not Reportable Basophils % Not Reportable Absolute Neutrophils Not Reportable Absolute Lymphocytes Not Reportable Absolute Monocytes Not Reportable Absolute Eosinophils Not Reportable Absolute Basophils Not Reportable Sodium 149.0 H Potassium 3.6 Chloride 114 H Carbon Dioxide 25 Anion Gap 10 BUN 14 Creatinine 0.81 Est GFR ( Amer) > 60 Est GFR (Non-Af Amer) > 60 Glucose 169 H Calcium 8.2 L Phosphorus Magnesium Transferrin Impressions: Abdomen/Pelvis CT 08/07/16 00:00 IMPRESSION: There is thickening of the hoyt of the sigmoid colon as noted above with an apparent focal area of narrowing suspicious for colonic neoplasm or stricture. There is a moderate amount of gas and fecal material in the colon just proximal to this level. Clinical correlation is recommended. Colonoscopy may be of value for further evaluation. Other findings as noted above Head CT 08/07/16 00:00 IMPRESSION: CHRONIC CHANGES OF ATROPHY AND MICROVASCULAR ISCHEMIA. NO ACUTE PROCESS. Chest X-Ray 08/07/16 16:28 IMPRESSION: No acute cardiopulmonary process. No significant change from prior study. Chest CT 08/08/16 00:00 IMPRESSION: No CT evidence of metastatic disease to the chest. There is a persistent left dense nephrogram with moderate left hydronephrosis and upper hydroureter. Suspect left-sided ureteral impingement by the midline malignant appearing pelvic mass seen on yesterday's CT abdomen and pelvis Renal Ultrasound 08/09/16 00:00 IMPRESSION: Moderate left hydronephrosis, similar compared to CT exam 08/07/2016 Assessment & Plan - Diagnosis (1) Abdominal mass, LLQ (left lower quadrant) Is this a current diagnosis for this admission?: YesPlan: Appears on CT the patient has a sigmoid mass and subsequent fecal impaction proximal to the mass. Appreciate surgery input on this case. Attempt cathartics both oral and per rectum. Hopefully plan for a sigmoidoscopy vs colectomy and diverting ostomy within the next several days. CEA and CA-19-9 are both elevated. (2) SIRS (systemic inflammatory response syndrome) Is this a current diagnosis for this admission?: YesPlan: Pending blood cultures, urine culture. Patient on ertapenem day #3 for intra- abdominal etiology. There is some concern for possible colitis or low-grade peritonitis. (3) Weight loss of more than 10% body weight Is this a current diagnosis for this admission?: YesPlan: Appreciate dietary input. Suspect that this is likely related to patient's underlying previously undiagnosed malignancy. Patient currently appears cachectic and is quite weak. Patient on ensure and Magic cup as well as Megace. Will monitor patient for refeeding syndrome. She has a profound protein calorie malnourishment. (4) Diabetes mellitus Qualifiers: Diabetes mellitus type: type 2 Diabetes mellitus complication status: with unspecified complications Diabetes mellitus skilled nursing insulin use: without skilled nursing use Qualified Code(s): E11.8 - Type 2 diabetes mellitus with unspecified complications; Z79.4 - FPC (current) use of insulin Is this a current diagnosis for this admission?: YesPlan: Patient's hemoglobin A1c is 5.8. Accu-Cheks every 6. 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 Begin patient on IV folic acid and patient has received IV iron from hematology. Appreciate their input into this patient's case. (6) Hypothyroidism Qualifiers: Hypothyroidism type: unspecified Qualified Code(s): E03.9 - Hypothyroidism, unspecified Is this a current diagnosis for this admission?: YesPlan: Patient currently hypothyroid and will initiate on 50 g of Synthroid daily. (7) Fecal impaction Is this a current diagnosis for this admission?: Yes (8) Altered mental status Qualifiers: Altered mental status type: disorientation Qualified Code(s): R41.0 - Disorientation, unspecified Is this a current diagnosis for this admission?: YesPlan: Feel that patient's current altered mental status is secondary to underlying sepsis, malignancy. (9) Cachexia Is this a current diagnosis for this admission?: Yes (10) Hydronephrosis concurrent with and due to ureteral stricture Is this a current diagnosis for this admission?: YesPlan: Repeat kidney ultrasound reveals moderate hydronephrosis. - Time Time Spent with patient: 35 or more minutes Medications reviewed and adjusted accordingly: Yes [facility]tic[facility]ated [facility] when bed available
--- NOTE | 2016-08-10 17:18 | PROGRESS NOTE E ---
Progress Note NAME: SUMMER LUZ : 1945 AGE: 71Y DATE: 08/10/2016 ROOM: 316 SUBJECTIVE: The patient is sitting out of bed but appears quite lethargic and weak. OBJECTIVE: VITAL SIGNS: The vital signs are noted. Blood pressure 107/85. Pulse 105. Temperature 97.6. Respirations 16. Saturation 100% on room air. ABDOMEN: The patient's abdomen is soft. Bowel sounds are present. There is minimal tenderness in the mid-abdomen. DIAGNOSTIC DATA: The patient's laboratory data: White count is 31,000, hemoglobin 9.2, hematocrit 29.4. The patient's sodium is 149, chloride is 114, glucose 169. The patient's CT could not be pulled up or be reviewed but has been reported by the surgeon signing out to me that this is a large mass involving the sigmoid colon with retroperitoneal extension with hydroureter/hydronephrosis. ASSESSMENT: Stage-4 colon CA with retroperitoneal extension. PLAN: The patient is to be sent to [facility] or [place] when a bed is made available. DICTATING PHYSICIAN: ROSENDO CLEARY M.D. [id number] PHY#: [id number] ID: [id number] JOB#: [id number] ACCT: [id number] cc:ROSENDO CLEARY M.D. >
[2016-08-11 00:07] VITALS: BP 152/99
[2016-08-11] MEDS: MORPHINE SULFATE 10 MG/ML INJ IV PRN (00:45)
== END 2016-08-11 01:40 | disposition short-term general hospital (02) | DRG 392 ==
LOC: ER 13:54 → EH 16:22 → UNDOADMIN 18:55 → EH 18:55 → 3W 08-08 03:05
PROVIDERS: ADMIT Family Medicine; ATTEND Family Medicine
DX: R19.00 Intra-abdominal and pelvic swelling, mass and lump, unspecified site (principal); R65.10 Systemic inflammatory response syndrome (SIRS) of non-infectious origin without acute organ dysfunction; N13.1 Hydronephrosis with ureteral stricture, not elsewhere classified; E46 Unspecified protein-calorie malnutrition; Z68.1 Body mass index [BMI] 19.9 or less, adult; R10.32 Left lower quadrant pain; E11.9 Type 2 diabetes mellitus without complications; D64.9 Anemia, unspecified; E03.9 Hypothyroidism, unspecified; K56.41 Fecal impaction; R41.0 Disorientation, unspecified; D52.0 Dietary folate deficiency anemia; R53.83 Other fatigue; Z60.2 Problems related to living alone; Z88.0 Allergy status to penicillin; Z87.891 Personal history of nicotine dependence
CPT/HCPCS: 36415; 70450; 71020; 71250; 74000; 74177; 76775; 80048; 80053; 81001; 82378; 82607; 82728; 82746; 82803; 82962; 83010; 83036; 83540; 83550; 83605; 83615; 83690; 83735; 84100; 84439; 84443; 84466; 84481; 85025; 85045; 85610; 85730; 86301; 86850; 86900; 86901; 87040; 87086; 87088; 96360; 99291; G8978-GP; G8979-GP; J1200; J1335; J1439; J1630; J1644; J1956; J2270; J3480; J3490; J7030; J7040; J7050